=== PATIENT | female | born 1955 | race Caucasian/White ===

== ENCOUNTER 2016-10-30 08:13 | Inpatient (IN) | payer MEDICAID, OTHER ==
--- NOTE | 2016-10-30 08:25 | ED PDOC ---
Arrival/HPI - General Chief Complaint: Weakness/Neurological Deficit Time Seen by Provider: 10/30/16 08:19 Historian: Patient - Critical Care Critical Care Minutes: 30 minutes - History of Present Illness Narrative History of Present Illness (Text): 10/30/16 08:19 Rika Dave is a 61 year old female who presents to the emergency department complaining of weakness since this morning. Patient's history obtained from family who states that patient was found on the floor next to her bed this morning. Patient was last seen normal yesterday. Patient's only known past medical history is hypertension with an unknown medication from [place]. Patient has no other complaint at this time. Time/Duration: 1-3 hours Symptom Course: Unchanged Activities at Onset: Rest Modifying Factors (Text): none Context: Home Past Medical History - Provider Review Nursing Documentation Reviewed: Yes Family/Social History - Physician Review Nursing Documentation Reviewed: Yes Family/Social History: No Known Family HX Allergies/Home Meds Allergies/Adverse Reactions: Allergies No Known Allergies Allergy (Verified 10/30/16 11:41) Home Medications: Home Meds Medication Instructions Recorded Confirmed Bisoprolol Fumarate 5 mg PO DAILY 10/30/16 10/30/16 Diclofenac Potassium [Cambia] 50 mg PO DAILY 10/30/16 10/30/16 Nitroglycerin [Nitro-Time] 2.5 mg PO 10/30/16 Physical Exam - Physical Exam Narrative Physical Exam (Text): - Physical exam ROS unobtainable. - Systems Exam Head: Present: Atraumatic, Normocephalic Pupils: Present: PERRL Extraocular Muscles: Present: L. sided gaze Conjunctiva: Present: Normal Mouth: Present: Moist Mucous Membranes Neck: Present: Normal Range of Motion. No: MIDLINE TENDERNESS, Paraspinal Tenderness Respiratory/Chest: Present: Clear to Auscultation, Good Air Exchange. Protecting her airway No: Respiratory Distress, Accessory Muscle Use, Tachypnic Cardiovascular: Present: Regular Rate and Rhythm, Normal S1, S2, Peripheral Pulses Present. No: Murmurs Abdomen: Present: Normal Bowel Sounds, No: Tenderness, Peritoneal Signs, Rebound, Guarding, Distention Back: Present: Normal Inspection. No: Midline Tenderness, Paraspinal Tenderness Upper Extremity: Present: Normal Inspection. No: Cyanosis, Edema Lower Extremity: Present: Normal Inspection. No: Edema Neurological: Patient responds to tactile stimuli. Left sided gaze. Loss of right nasao labial fold. Unable to move right arm and right LE. Skin: Present: Warm, Dry, Normal Color. No: Rashes Lymphatic: Present: OX3, NI, NC Vital Signs Reviewed: Yes Vital Signs Temp Pulse Resp BP Pulse Ox 10/30/16 13:08 79 18 157/81 H 98 10/30/16 12:37 97.7 F 70 19 170/78 H 10/30/16 12:08 66 17 146/77 99 10/30/16 08:36 97.7 F 70 19 170/78 H 97 Temperature: Afebrile Blood Pressure: Hypertensive Pulse: Regular Respiratory Rate: Normal Appearance: Positive for: Non-Toxic Pain Distress: None Medical Decision Making ED Course and Treatment: 10/30/16 08:19 Impression: 61 year old female complaining of weakness since this morning. R. sided upper/ lower exr paralysis on exam. Loss of. R. naso-labial fold with L. sided gaze on exam. Differential Diagnosis included but are not limited to: TIA Plan: -- EKG -- Chest X-ray -- Head CT w/o contrast -- Type and Screen -- Labs -- Reassess and disposition Progress Notes: EKG shows NSR at [address]-segment elevations, normal intervals. Interpreted by me. 10/30/16 08:19 Patient examined immediately upon arrival. Code Stroke called. 10/30/16 08:[address] w/o contrast: Dictator : Elder Mckeon MD FINDINGS: HEMORRHAGE:No intracranial hemorrhage. BRAIN: No mass effect however there is questionable cortical edema at the left upper lobe laterally though this may be a function of artifact from the temporal bone. Follow-up MRI or CT is advised for further characterization. No atrophy or chronic microvascular ischemic changes. VENTRICLES:Unremarkable. No hydrocephalus. CALVARIUM:Unremarkable. PARANASAL SINUSES:Extensive left maxillary sinusitis incidentally noted. MASTOID AIR CELLS:Unremarkable as visualized. No inflammatory changes. OTHER FINDINGS:None. IMPRESSION: Borderline pattern for potential infarct left temporal lobe laterally. Follow- up CT or MRI is advised for greater characterization. No intracranial hemorrhage. Incidental left maxillary sinusitis. 10/30/16 08:[address] Greg Castellano in great detail, who recommends MRI and no TPA. 10/30/16 09:[address] Casiano, who accepts patient admission and states to admit patient to telemetry. pt's family member aware of plan and updated on pt's condition 10/30/16 15:24 spoke with personnel technician, states pt has large stroke on MRI, verbal order for MRA given Dr. Thompson informed of MRI finding - Lab Interpretations Lab Results: 10/30/16 08:36 10/30/16 08:36 Lab Results 10/30/16 08:57: Blood Type B POSITIVE, Antibody Screen Negative, BBK History Checked No verified bt 10/30/16 08:36: Sodium 138, Potassium 3.7, Chloride 104, Carbon Dioxide 23, Anion Gap 15, BUN 16, Creatinine 0.6, Est GFR ( Amer) > 60, Est GFR (Non- Af Amer) > 60, Random Glucose 215 H, Calcium 9.4, Total Bilirubin 1.0, AST 59 H , ALT 74 H, Alkaline Phosphatase 98, Troponin I < 0.01, Total Protein 7.2, Albumin 4.0, Globulin 3.2, Albumin/Globulin Ratio 1.3, Triglycerides 161 H, Cholesterol 191, LDL Cholesterol Direct 114, HDL Cholesterol 42 10/30/16 08:36: PT 10.9, INR 1.01, APTT 23.0 L 10/30/16 08:36: WBC 3.2 L, RBC 4.80, Hgb 13.9, Hct 39.4, MCV 82.1, MCH 29.0, MCHC 35.3, RDW 12.2, Plt Count 166, MPV 9.7, Neutrophils % (Manual) 29 L, Band Neutrophils % 2, Lymphocytes % (Manual) 56 H, Monocytes % (Manual) 8 H, Eosinophils % (Manual) 5 H, Platelet Evaluation Normal I have reviewed the lab results: Yes - RAD Interpretation Radiology Orders: 10/30/16 08:21 HEAD W/O (CODE STROKE) [CT] Stat CHEST PORTABLE [RAD] Stat 10/30/16 08:59 BRAIN WITHOUT CONTRAST [MRI] Stat - Medication Orders Current Medication Orders: Insulin Human Regular (Humulin R Low) 0 units SC ACHS CANDI PRN Reason: Protocol Metoprolol Tartrate (Lopressor) 5 mg IVP Q6 PRN PRN Reason: Systolic Blood Pressure Discontinued Medications Aspirin (Aspirin Supp) 300 mg RC STAT STA Stop: 10/30/16 09:04 Last Admin: 10/30/16 09:10 Dose: 300 mg Iohexol (Omnipaque 350 150 Ml) Confirm Administered Dose 150 ml .ROUTE .STK-MED ONE Stop: 10/30/16 09:48 Pneumococcal Polyvalent Vaccine (Pneumovax 23 Vaccine) 0.5 ml IM .ONCE ONE Stop: 10/30/16 13:14 NIHSS Scale ([place]) Time Performed: 08:19 - How Severe is the Stoke Baseline Level of Consciousness: 1=Drowsy LOC to Questions: 2=Neither correct LOC to commands: 2=Neither correct Best Gaze: 2=Forced deviation Visual: 0=No visual loss Facial: 1=Minor asymmetry Motor Arm - Left: 0=No drift Motor Arm - Right: 4=No movement Motor Leg - Left: 0=No drift Motor Leg - Right: 4=No movement Limb Ataxia: 0=Absent Sensory: 0=Normal Best Language: 2=Severe aphasia Dysarthia: 2=Severe, near unintelligible or worse Extinction & Inattention (Neglect): 0=Normal, no object Score: 20 Risk Level: Mod/Sev Stroke Risk rTPA Inclusion/Exclusion - Refusal of Treatment Patient Refused Treatment: No - Inclusion Criteria for Altepase Patient is 18 years or Older: Yes The Clinical Diagnosis of Ischemic Stroke That is Causing a Potentially Disabling Neurological Deficit: Yes Time of Onset is Well Established to be Less Than 270 Minute Before Treatment Would Begin: No Risk/Benefit Discussed With Patient/Family Member Present: No - Scribe Statement The provider has reviewed the documentation as recorded by the Scott Fraga Provider Scribe Attestation: All medical record entries made by the Scribe were at my direction and personally dictated by me. I have reviewed the chart and agree that the record accurately reflects my personal performance of the history, physical exam, medical decision making, and the department course for this patient. I have also personally directed, reviewed, and agree with the discharge instructions and disposition. Disposition/Present on Arrival - Present on Arrival Any Indicators Present on Arrival: No - Disposition Have Diagnosis and Disposition been Completed?: Yes Diagnosis: CVA (cerebral vascular accident) Disposition Time: 09:04 Patient Plan: Admission Patient Problems: Current Active Problems Problem Status Onset CVA (cerebral vascular accident) Acute Condition: FAIR
[2016-10-30 08:33] VITALS: BMI 21.9
--- NOTE | 2016-10-30 08:38 | CT ---
PROCEDURE: CT HEAD WITHOUT CONTRAST. HISTORY: Code Stroke COMPARISON: None available. TECHNIQUE: Axial computed tomography images were obtained through the head/brain without intravenous contrast. Radiation dose: Total exam DLP = 687 mGy-cm. This CT exam was performed using one or more of the following dose reduction techniques: Automated exposure control, adjustment of the mA and/or kV according to patient size, and/or use of iterative reconstruction technique. FINDINGS: HEMORRHAGE: No intracranial hemorrhage. BRAIN: No mass effect however there is questionable cortical edema at the left upper lobe laterally though this may be a function of artifact from the temporal bone. Follow-up MRI or CT is advised for further characterization. No atrophy or chronic microvascular ischemic changes. VENTRICLES: Unremarkable. No hydrocephalus. CALVARIUM: Unremarkable. PARANASAL SINUSES: Extensive left maxillary sinusitis incidentally noted. MASTOID AIR CELLS: Unremarkable as visualized. No inflammatory changes. OTHER FINDINGS: None. IMPRESSION: Borderline pattern for potential infarct left temporal lobe laterally. Follow-up CT or MRI is advised for greater characterization. No intracranial hemorrhage. Incidental left maxillary sinusitis.
[2016-10-30 08:49] LABS: HEMATOCRIT 39.4 % (36.0-48.0); MEAN CELL VOLUME 82.1 fL (80.0-105.0); MEAN CORPUSCULAR HGB CONC 35.3 g/dl (31.0-37.0); MEAN PLATELET VOLUME 9.7 fl (7.0-11.0); PLATELET COUNT 166 10^3/uL (120.0-450.0); RED CELL DISTRIBUTION WIDTH 12.2 % (11.5-14.5); WHITE BLOOD COUNT 3.2 10^3/ul (4.5-11.0)
[2016-10-30 08:50] LABS: ADD MANUAL DIFF? YES
[2016-10-30 08:56] LABS: INR 1.01 (0.93-1.08)
[2016-10-30 08:57] LABS: ALB/GLOB RATIO 1.3 (1.1-1.8); ALKALINE PHOSPHATASE 98 U/L (38-133); ALT/SGPT 74 U/L (7-56); AST/SGOT 59 U/L (15-39); BLOOD UREA NITROGEN 16 mg/dL (7-21); CALCIUM 9.4 mg/dL (8.4-10.5); CARBON DIOXIDE 23 mmol/L (21-33); CHLORIDE 104 mmol/L (98-107); CHOLESTEROL 191 mg/dL (130-200); GFR AFRICAN-AMERICAN > 60; GLUCOSE,RANDOM 215 mg/dL (70-110); POTASSIUM 3.7 mmol/L (3.6-5.0); SODIUM 138 mmol/L (132-148); TOTAL PROTEIN 7.2 g/dL (5.8-8.3)
[2016-10-30 09:08] LABS: TROPONIN I < 0.01 ng/mL
[2016-10-30 09:12] LABS: BAND 2 % (0-2); EOSINOPHIL 5 % (0.0-3.0); NEUTROPHIL 29 % (50.0-70.0); PLATELET ESTIMATE NORMAL (NORMAL)
--- NOTE | 2016-10-30 09:13 | RAD ---
HISTORY: CVA COMPARISON: No prior. FINDINGS: LUNGS: No active pulmonary disease. PLEURA: No significant pleural effusion identified, no pneumothorax apparent. CARDIOVASCULAR: Normal. OSSEOUS STRUCTURES: No significant abnormalities. VISUALIZED UPPER ABDOMEN: Normal. OTHER FINDINGS: None. IMPRESSION: No active disease.
--- NOTE | 2016-10-30 09:51 | CP.PCM.CON ---
History of Present Illness - History of Present Illness History of Present Illness: PGY-2 neurology consult note for Dr Castellano. Reason for consult: Stroke Patient is a 61 y/o with Found on the floor by family members this morning. Past Patient History - Past Social History Smoking Status: Never Smoked - CARDIAC Hx Hypertension: Yes - PULMONARY Hx Respiratory Disorders: No - NEUROLOGICAL Hx Neurological Disorder: No - HEENT Hx HEENT Problems: No - RENAL Hx Chronic Kidney Disease: No - ENDOCRINE/METABOLIC Hx Endocrine Disorders: No - HEMATOLOGICAL/ONCOLOGICAL Hx Blood Disorders: No - INTEGUMENTARY Hx Dermatological Problems: No - MUSCULOSKELETAL/RHEUMATOLOGICAL Hx Musculoskeletal Disorders: No - GASTROINTESTINAL Hx Gastrointestinal Disorders: No - GENITOURINARY/GYNECOLOGICAL Hx Genitourinary Disorders: No - PSYCHIATRIC Hx Psychophysiologic Disorder: No Hx Substance Use: No - SURGICAL HISTORY Hx Surgeries: Yes Other/Comment: Scar noted to left upper chest, unknown sx Meds Allergies/Adverse Reactions: Allergies Allergy/AdvReac Type Severity Reaction Status Date / Time No Known Allergies Allergy Verified 10/30/16 08:25 Results - Vital Signs Recent Vital Signs: Last Vital Signs Temp 97.7 F 10/30/16 08:36 Pulse 70 10/30/16 08:36 Resp 19 10/30/16 08:36 BP 170/78 H 10/30/16 08:36 Pulse Ox 97 10/30/16 08:36 - Labs Result Diagrams: 10/30/16 08:36 10/30/16 08:36 Assessment & Plan - Assessment and Plan (Free Text) Assessment: CT head w/o contrast: Borderline pattern for potential infarct left temporal lobe laterally. Follow-up CT or MRI is advised for greater characterization. No intracranial hemorrhage. Incidental left maxillary sinusitis. Plan: - Obtain MRI/MRA - Neuro check - Fall precaution - Maintain SBP between 130-140 - Monitor and correct electrolytes accordingly.
[2016-10-30] MEDS ORDERED: Metoprolol 1 mg/ml Inj IVP PRN (12:00)
--- NOTE | 2016-10-30 12:17 | CT ---
PROCEDURE: CT Angiography of the Brain. HISTORY: code stroke COMPARISON: None available. TECHNIQUE: CT angiography of the intracranial arteries was performed. Coronal and sagittal maximum intensity projection reformated images were generated. This CT exam was performed using one or more of the following dose reduction techniques: Automated exposure control, adjustment of the mA and/or kV according to patient size, and/or use of iterative reconstruction technique. FINDINGS: INTERNAL CEREBRAL ARTERIES: Unremarkable. The skull base, petrous, cavernous and supraclinoid segments are bilaterally widely patient. ANTERIOR CEREBRAL ARTERIES: Unremarkable. A1 and A2 segments are widely patent. Smaller distal branches unremarkable, as visualized. MIDDLE CEREBRAL ARTERIES: Unremarkable. M1 and M2 segments are widely patent. Perisylvian branches grossly symmetric. POSTERIOR CIRCULATION: Basilar Artery: Unremarkable. Distal Vertebral Arteries: Unremarkable. Posterior Cerebral Arteries: Unremarkable. Posterior Inferior Cerebellar Arteries: Unremarkable. ANEURYSM/ VASCULAR MALFORMATIONS: None. OTHER FINDINGS: None. IMPRESSION: Unremarkable CT Angiography of the Brain.
--- NOTE | 2016-10-30 12:53 | CP.PCM.CON ---
<Nilo Andrade S - Last Filed: 10/30/16 12:47> History of Present Illness - History of Present Illness History of Present Illness: PGY-[address] Castellano's Neurology Service: Reason for consult: Code Stroke This is a 61 year old female with PMHx CAD s/p PCI x2, HTN who presented to the ED with right sided weakness. Patient was well last evening but was found this morning on the floor next to her bed by her grandson. Patient was non-verbal and had right sided flacid hemiparesis. At the time of encounter patient was with her son-in-law who could not provide a more complete past medical history. PMHx: HTN, CAD s/p PCI x2 PSHx: Unspecified left sided CT surgery Allergies: NKDA Social: Denies tobacco, alcohol, drugs. Family Hx: No family history of CVA. Home Meds: unspecified BP medication Review of Systems - Review of Systems Review of Systems: Unable to ascertain 14-point ROS due to patient's non-verbal state. Past Patient History - Past Social History Smoking Status: Never Smoked - CARDIAC Hx Hypertension: Yes - PULMONARY Hx Respiratory Disorders: No - NEUROLOGICAL Hx Neurological Disorder: No - HEENT Hx HEENT Problems: No - RENAL Hx Chronic Kidney Disease: No - ENDOCRINE/METABOLIC Hx Endocrine Disorders: No - HEMATOLOGICAL/ONCOLOGICAL Hx Blood Disorders: No - INTEGUMENTARY Hx Dermatological Problems: No - MUSCULOSKELETAL/RHEUMATOLOGICAL Hx Musculoskeletal Disorders: No - GASTROINTESTINAL Hx Gastrointestinal Disorders: No - GENITOURINARY/GYNECOLOGICAL Hx Genitourinary Disorders: No - PSYCHIATRIC Hx Psychophysiologic Disorder: No Hx Substance Use: No - SURGICAL HISTORY Hx Surgeries: Yes Other/Comment: Scar noted to left upper chest, unknown sx Meds Allergies/Adverse Reactions: Allergies Allergy/AdvReac Type Severity Reaction Status Date / Time No Known Allergies Allergy Verified 10/30/16 11:41 - Medications Medications: Current Medications Insulin Human Regular (Humulin R Low) 0 units SC ACHS CANDI PRN Reason: Protocol Metoprolol Tartrate (Lopressor) 5 mg IVP Q6 PRN PRN Reason: Systolic Blood Pressure Physical Exam - Constitutional Additional comments: Drowsy - Head Exam Head Exam: ATRAUMATIC, NORMAL INSPECTION, NORMOCEPHALIC - Eye Exam Additional comments: Opens eyes spontaneously but unable to follow commands with regards to extraocular muscle testing. - Respiratory Exam Respiratory Exam: Clear to Auscultation Bilateral - Cardiovascular Exam Cardiovascular Exam: REGULAR RHYTHM - GI/Abdominal Exam GI & Abdominal Exam: Normal Bowel Sounds - Neurological Exam Additional comments: Right sided facial droop. Right sided flacid hemiparesis. Right sided flor-neglect. Spontaneously opens both eyes. Able to move left upper and lower extremities. Bilateral upper extremities 3/4 reflexes. Bilateral lower extremities 2+/4 reflexes. 2-3 beats of clonus bilaterally in the lower extremities right>left. Up-going plantar response on right. Down-going plantar response on left. Results - Vital Signs Recent Vital Signs: Last Vital Signs Temp 97.7 F 10/30/16 08:36 Pulse 70 10/30/16 08:36 Resp 19 10/30/16 08:36 BP 170/78 H 10/30/16 08:36 Pulse Ox 97 10/30/16 08:36 - Labs Result Diagrams: 10/30/16 08:36 10/30/16 08:36 Labs: Laboratory Results - last 24 hr 10/30/16 09:21 Blood Type Confirm B POSITIVE Assessment & Plan - Assessment and Plan (Free Text) Assessment: This is a 61 year old female with PMHx CAD s/p PCI x2, HTN who presented to the ED with right sided weakness. CT reveals ischemic changes in left temporal lobe indicating a left MCa territory infarct. Right sided weakness, right sided facial droop, aphasia secondary to a left MCA territory infarct secondary to diffuse atherosclerosis. Plan: 1) MRI brain without contrast to assess for infarction. 2) Labs--fasting lipid, Hgb A1C, Homocysteine level, Hepatitis Panel because of elevated LFTs 3) Carotid dopplers to assess for carotid disease 4) ASA 81 mg and Atorvastatin 80 mg PO daily. Can reduce Atorvastatin to 40 mg after 21 days. 5) 2D Echo 6) PT/OT/ BUDGET CONTROLLER evaluation 7) Needs acute rehab Case discussed with Dr. Nona Andrade, PGY-1 - Date & Time Date: 10/30/16 Time: 10:00 <Rodrigo Castellano - Last Filed: 10/30/16 13:15> Meds - Medications Medications: Current Medications Insulin Human Regular (Humulin R Low) 0 units SC ACHS CANDI PRN Reason: Protocol Metoprolol Tartrate (Lopressor) 5 mg IVP Q6 PRN PRN Reason: Systolic Blood Pressure Results - Vital Signs Recent Vital Signs: Last Vital Signs Temp 97.7 F 10/30/16 12:37 Pulse 70 10/30/16 12:37 Resp 19 10/30/16 12:37 BP 170/78 H 10/30/16 12:37 Pulse Ox 97 10/30/16 08:36 - Labs Result Diagrams: 10/30/16 08:36 10/30/16 08:36 Labs: Laboratory Results - last 24 hr 10/30/16 09:21 Blood Type Confirm B POSITIVE Attending/Attestation - Attestation I have personally seen and examined this patient.: Yes I have fully participated in the care of the patient.: Yes I have reviewed all pertinent clinical information: Yes
[2016-10-30] MEDS ORDERED: Pneumococcal 23-Valent Vaccine IM ONE (13:13)
--- NOTE | 2016-10-30 15:32 | MRI ---
PROCEDURE: MRI BRAIN WITHOUT CONTRAST HISTORY: cva COMPARISON: None. TECHNIQUE: Multiplanar, multisequence MR images of the brain were obtained without intravenous contrast enhancement. FINDINGS: HEMORRHAGE: None DWI: There is a large acute infarct in the left hemisphere involving the left frontal parietal and temporal lobes in the distribution of the middle cerebral artery. BRAIN PARENCHYMA: No mass effect or edema. The infarct is not yet visible on T2 and FLAIR images indicating that it is in its earliest stages. VENTRICLES: Unremarkable. No hydrocephalus. CRANIUM: Unremarkable. ORBITS: Grossly unremarkable. PARANASAL SINUSES/MASTOIDS: Clear VASCULAR SYSTEM: Skull base flow voids intact. OTHER FINDINGS: Dr. Barr was called at 3:30 p.m. IMPRESSION: Large acute left MCA infarct without significant mass effect and no evidence of hemorrhage.
--- NOTE | 2016-10-30 15:41 | CP.PCM.HP ---
"Addendum entered and electronically signed by Andrea Gutierrez DO 17:03: Subjective/HPI: Medications: see MAR, reviewed A/P 6.) Leukopenia - WBC: 3.2 - Follow CBC - if persists, Heme c/s Original Note: <Andrea Gutierrez - Last Filed: 10/30/16 16:44> History of Present Illness - History of Present Illness History of Present Illness: Note: HPI was obtained by son-in-law who was at bedside, 2/2 AMS Ms. Jaquan Dave is a 61 yo F with a PMHx significant for HTN, who was admitted today after presenting to the ED this morning with altered mental status. The pt was evaluated in the ED and code stroke was called at 0819. The pt was brought in by her son in law after being found on the floor at 0730, having fallen out of bed, by her grandson. She was last seen normal last night before bed. The pt was noted to be weak on presentation to the ED. Of note, patient takes an unknown medication for her HTN. The pt lives with her daughter and son in law. Per son in law, the pt had a normal weekend with no complaints or problems. He states that she has never experienced anything like this before. He recalls her complaining of headache earlier this week, more than four days ago. Pt speaks [place] and is from [place]. Patient denies recent illness, chest pains , smoking hx, and illicit drug use hx. PMHx: HTN, CAD s/p 2 or 3 cardiac caths in [place] due to chest pain. Uncertain if stents were placed PSHx: unknown Social: No smoking, tobacco, EtOH, or other drugs FHx: no known hx of heart disease or stroke. All: NKDA Present on Admission - Present on Admission Any Indicators Present on Admission: No Review of Systems - Hematologic/Lymphatic Additional comments: ROS: Difficult to obtain 2/2 patient's AMS. Past Patient History - Past Social History Smoking Status: Never Smoked - CARDIAC Hx Hypertension: Yes - PULMONARY Hx Respiratory Disorders: No - NEUROLOGICAL Hx Neurological Disorder: No - HEENT Hx HEENT Problems: No - RENAL Hx Chronic Kidney Disease: No - ENDOCRINE/METABOLIC Hx Endocrine Disorders: No - HEMATOLOGICAL/ONCOLOGICAL Hx Blood Disorders: No - INTEGUMENTARY Hx Dermatological Problems: No - MUSCULOSKELETAL/RHEUMATOLOGICAL Hx Musculoskeletal Disorders: No - GASTROINTESTINAL Hx Gastrointestinal Disorders: No - GENITOURINARY/GYNECOLOGICAL Hx Genitourinary Disorders: No - PSYCHIATRIC Hx Psychophysiologic Disorder: No Hx Substance Use: No - SURGICAL HISTORY Hx Surgeries: Yes Other/Comment: Scar noted to left upper chest, unknown sx Meds Allergies/Adverse Reactions: Allergies Allergy/AdvReac Type Severity Reaction Status Date / Time No Known Allergies Allergy Verified 10/30/16 11:41 Physical Exam - Additional Findings Additional findings: Vitals: T 97.7|HR 70|RR 19|BP 170/78|SpO2 97% on RA PEx: General: obtunded woman, slumped to R side. HEENT: atraumatic, normocephalic. R sided facial droop noted. MMM. Eyes: no scleral icterus. R pupil sluggishly reactive to light on exam. L pupil round and briskly reactive to light. Some R lateral gaze deficit noted on exam. Neck: neck supple, no jvd. Pulm: CTAB, no w/r/r. No accessory muscle use. Normal work of breathing. Cardio: RRR, no m/r/g. Abdomen: Soft NT/ND. No peritoneal signs. Neuro: GCS 10. Pt AO only to self with L-lester gaze. Pt responsive to tactile stimuli. Pt hearing normal in L ear. R sided facial droop. Nonverbal. Pt grimaces asymmetrically on command. Loss of R nasolabial fold. R-sided facial droop noted. 5/5 algebra teacher strength noted on the L, 0/5 algebra teacher strength on the R. 4/5 strength LLE and 0/5 strength RLE. No spontaneous movement of extremities past midline. Hyperreflexia noted on the L with LUE biceps and brachioradialis reflexes 3+, LLE patellar and plantar reflexes 3+ on the LLE. Normal 2+ reflexes in both RUE and RLE. RLE clonus present 2-3 beats. LLE clonus observed 2 beats. Babinski sign positive on both R and L with upgoing toes. Negative Hoffmans sign bilaterally. No asterixis or tremor noted in upper extremities bilaterally. MSK: no peripheral edema in bilateral LEs. Derm: skin warm, dry, intact. No rashes observed. Psych: clouded sensorium. Non-verbal. Results - Vital Signs Recent Vital Signs: Last Vital Signs Temp 97.7 F 10/30/16 12:37 Pulse 79 10/30/16 13:08 Resp 18 10/30/16 13:08 BP 157/81 H 10/30/16 13:08 Pulse Ox 98 10/30/16 13:08 - Labs Result Diagrams: 10/30/16 08:36 10/30/16 08:36 Labs: Laboratory Results - last 24 hr 10/30/16 09:21 Blood Type Confirm B POSITIVE Assessment & Plan - Assessment and Plan (Free Text) Assessment: Assessment: Admit ICU 1. CVA ischemic stroke - ED note reviewed: ASA, bisoprolol, potassium, and nitro given in ER. - NIH stroke scale: 20 - CT head: significant for L temporal lobe lesion and no intracranial hemorrhage. ECG was WNL. - CT Angio: no sig disease/no active disease - MRI: MCA infarct - MRA: MCA infarct - No tPA recommended at this time. - Neurochecks q1h - Per Neuro: ASA 81 mg and Atorvastatin 80 mg PO daily. Can reduce Atorvastatin to 40 mg after 21 days. - A1C, Homocysteine, LFT's ordered - Carotid Duplex U/S, B/L, Ordered - 2D ECHO - Social work: Stroke Rehab - PT/OT Evaluation needed - Continue ASA 81, Atorvastatin - NPO - Fall precautions - Seizure precautions 2. Elevated Liver enzymes - Hepatitis panel 3. Hyperglycemia - Humalog sliding scale 4. Hx/O HTN - Metoprolol 5mg IV q6 5. GI/DVT ppx - Protonix IV - SCD's <Leno Casiano - Last Filed: 10/30/16 17:34> Results - Vital Signs Recent Vital Signs: Last Vital Signs Temp 99.6 F 10/30/16 16:30 Pulse 68 10/30/16 16:10 Resp 21 10/30/16 16:10 BP 165/79 H 10/30/16 16:00 Pulse Ox 97 10/30/16 16:10 - Labs Result Diagrams: 10/30/16 08:36 10/30/16 08:36 Labs: Laboratory Results - last 24 hr 10/30/16 09:21 Blood Type Confirm B POSITIVE Attending/Attestation - Attestation I have personally seen and examined this patient.: Yes I have fully participated in the care of the patient.: Yes I have reviewed all pertinent clinical information: Yes Notes (Text): 10/30/16 17:30 Attending note; Patient seen and examined with resident in ER. Patient's son-in-law by the bedside. Patient is a 61-year-old [place]cu[place] female admitted with altered mental status/ aphasia/right-sided weakness. The patient was found on the floor at 7:30 this morning. Code stroke was called. Patient is not a TPA candidate due to the unknown time of onset of symptoms. CT head showed left temporal infarct. MRI showed large MCA infarct. MRA consistent with left MCA occlusion. Patient is alert and awake. Cannot follow commands. Failed swallow evaluation. Complete right-sided flaccid paralysis/ aphasic. Admitted to ICU; Monitor closely. Neuro checks every 1 hour. Aspirin suppository given. IV metoprolol for hypertension. GI prophylaxis with Protonix. SCDs for DVT prophylaxis. Physical therapy/speech therapy/occupational therapy evaluation requested. Patient is from [place]. 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
--- NOTE | 2016-10-30 15:49 | MRI ---
PROCEDURE: Magnetic Resonance Angiography Brain HISTORY: PER DR. GANDHI FROM COMPARISON: MRI of the brain performed at the same time TECHNIQUE: 3D time of flight MR angiography of the intracranial arteries was performed. Rotating maximum intensity projection images were generated. FINDINGS: The study is limited by motion artifact. There is no flow seen in the MCA branches on the left beyond on the level of the bifurcation. There is some flow seen in the M1 segment. . The findings correspond to the acute infarct seen on the diffusion images of the MRI scan. Findings were discussed with Drs. Gandhi and Jay at 3:30PM IMPRESSION: Occlusion of the left middle cerebral artery
[2016-10-30] MEDS: Insulin Reg-LOW-Coverage SC SCH ×2 (19:29→22:00)
[2016-10-30 20:52] LABS: PH,URINE 6.5 (4.7-8.0); URINE BILIRUBIN NEGATIVE (NEGATIVE); URINE BLOOD SMALL (NEGATIVE); URINE GLUCOSE (UA) 250 mg/dL (NEGATIVE); URINE KETONE 15 mg/dL (NEGATIVE); URINE LEUKOCYTE ESTERASE NEGATIVE Leu/uL (NEGATIVE); URINE PROTEIN NEGATIVE mg/dL (<30 mg/dL); URINE UROBILINOGEN 0.2 E.U./dL (<1 E.U./dL)
[2016-10-30 20:55] LABS: URINE APPEARANCE CLOUDY (CLEAR); URINE COLOR YELLOW (YELLOW)
--- NOTE | 2016-10-30 21:08 | CARD ---
APPROVED REPORT EKG Measurement Heart [id number] <Conclusion> Normal sinus rhythm Normal ECG
[2016-10-30 21:56] LABS: URINE BACTERIA MOD (NEG); URINE EPITHELIAL CELLS 0 - 2 /hpf (0-5); URINE WBC 0 - 2 /hpf (0-6)
--- NOTE | 2016-10-31 01:17 | CON ---
DATE: 10/30/2016 HISTORY OF PRESENT ILLNESS: This is a 61-year-old lady with history of hypertension who presented with weakness since this morning. The patient was found on the floor by family member and later on weakness in the left upper and lower extremities as well as the left part of the face was noted. No more details about her HPI is available as she is poor historian. No details about fever, chills, sweat, nausea, vomiting, diarrhea or constipation. Chest pain and shortness of breath available as well. PAST MEDICAL HISTORY: Hypertension. MEDICATIONS AT HOME: Bisoprolol, diclofenac, and nitroglycerin. ALLERGIES: NKDA. FAMILY HISTORY: Noncontributory. SOCIAL HISTORY: No alcohol use or drug abuse. No tobacco smoking. REVIEW OF SYSTEMS: Review of 12-point review of system other than mentioned in history of present illness is negative. PHYSICAL EXAMINATION VITAL SIGNS: Blood pressure 157/81, heart rate 79, respiratory rate 18, oxygen saturation 98% on room air. HEENT: Head and neck is atraumatic. There is essential flattening of the right nasolabial fold. She is unable to rise her eyebrow on the right side. LUNGS: Clear to auscultation bilaterally. CARDIOPULMONARY: Regular rate and rhythm. S1 and S2 normal. ABDOMEN: Soft, nontender and nondistended. MUSCULOSKELETAL: No C/C/E. EXTREMITIES: There is a 1/5 motor strength in the left upper and lower extremities. SKIN: Moist. PSYCHIATRIC: The patient is able to follow commands, but barely. LABORATORY DATA: WBC 3.2, hemoglobin 13.9 and platelet count 156. Sodium 138, potassium 3.7, chloride 104, carbon dioxide 23, BUN 16, creatinine 0.6, AST 59, ALT 74, total bilirubin 1. INR 1.01. Initial head CT showed borderline pattern of potential infarct in left temporal lobe laterally. CT angiography showed widely patent M1, M2 segments in both middle cerebral arteries. Unremarkable A1 and A2 segments of the anterior cerebral arteries, posterior circulation including basilar artery, distal vertebral arteries, posterior cerebral arteries, posterior and inferior cerebral arteries are unremarkable. No AV malformations noted. She also does not have history of migraine or convulsion disorder. ASSESSMENT AND PLAN: This is a 61-year-old lady who presented with clinical left middle cerebral artery stroke which, however, was not visible on CT angio. She is going for MRI of the brain to better characterize changes in her brain. Meanwhile, we will treat her with permissive hypertension up to 220 systolic according to AHA guidelines and recommendations. She will receive aspirin, remain n.p.o. until swallow evaluation clears her for oral nutrition and medications. We will proceed with physical therapy and occupational therapy, early mobilization, out of bed to chair, echocardiogram, carotid Doppler. We will continue to maintain euvolemia, euglycemia, normothermia, and oxygen saturation more than more than 90%. We will continue with DVT and GI prophylaxis. ccm time 40 min Jovany Thompson MD [place]
[2016-10-31 06:48] LABS: MEAN CELL VOLUME 82.1 fL (80.0-105.0); MEAN CORPUSCULAR HEMOGLOBIN 28.4 pg (25.0-35.0); MEAN CORPUSCULAR HGB CONC 34.7 g/dl (31.0-37.0); MEAN PLATELET VOLUME 9.9 fl (7.0-11.0); RED CELL DISTRIBUTION WIDTH 12.6 % (11.5-14.5); WHITE BLOOD COUNT 5.9 10^3/ul (4.5-11.0)
[2016-10-31 06:58] LABS: BLOOD UREA NITROGEN 13 mg/dL (7-21); CALCIUM 9.8 mg/dL (8.4-10.5); CARBON DIOXIDE 25 mmol/L (21-33); CHLORIDE 102 mmol/L (98-107); GFR AFRICAN-AMERICAN > 60; GLUCOSE,RANDOM 184 mg/dL (70-110); POTASSIUM 3.8 mmol/L (3.6-5.0); SODIUM 138 mmol/L (132-148)
[2016-10-31] MEDS: Insulin Reg-LOW-Coverage SC SCH ×4 (08:18→22:31)
--- NOTE | 2016-10-31 09:56 | US ---
PROCEDURE: Bilateral carotid artery duplex ultrasound HISTORY: Carotid stenosis CVA PHYSICIAN(S): Dirk Paz MD. TECHNIQUE: Duplex sonography and color-flow Doppler were used to evaluate the carotid bifurcations and limited segments of the vertebral arteries bilaterally. FINDINGS: There is mild smooth hypoechoic plaque noted at the carotid bifurcations bilaterally. The peak systolic velocity in the proximal right internal carotid artery is 88 cm/sec. This corresponds to a 20 to 39% proximal right ICA stenosis. Normal systolic velocities are noted in the proximal right external carotid artery. There is antegrade flow in the small right vertebral artery. The peak systolic velocity in the proximal left internal carotid artery is 54 cm/sec. This corresponds to a 20 to 39% proximal left ICA stenosis. Normal systolic velocities are noted in the proximal left external carotid artery. There is antegrade flow in the dominant left vertebral artery. IMPRESSION: 1. Bilateral 20-39% proximal ICA stenoses. 2. Antegrade flow in both vertebral arteries.
[2016-10-31 10:05] LABS: ALB/GLOB RATIO 1.2 (1.1-1.8); ALKALINE PHOSPHATASE 100 U/L (38-133); ALT/SGPT 61 U/L (7-56); AST/SGOT 47 U/L (15-39); BILIRUBIN,TOTAL 1.2 mg/dL (0.2-1.3); BLOOD UREA NITROGEN 14 mg/dL (7-21); CALCIUM 9.7 mg/dL (8.4-10.5); CARBON DIOXIDE 24 mmol/L (21-33); CHLORIDE 102 mmol/L (98-107); GFR AFRICAN-AMERICAN > 60; GLUCOSE,RANDOM 205 mg/dL (70-110); POTASSIUM 3.9 mmol/L (3.6-5.0); SODIUM 138 mmol/L (132-148); TOTAL PROTEIN 7.6 g/dL (5.8-8.3)
--- NOTE | 2016-10-31 12:18 | CP.PCM.CON ---
<Nilo Andrade - Last Filed: 10/31/16 12:13> History of Present Illness - History of Present Illness History of Present Illness: PGY-1 Neurology Progress Note for Dr. Castellano's service: Patient seen and examined at bedside. Patient is more responsive than yesterday. Some spontaneous internal rotation of the right hip noted. Review of Systems - Review of Systems Review of Systems: 14 point ROS unable to ascertain due to non-verbal state. Past Patient History - Past Social History Smoking Status: Never Smoked - CARDIAC Hx Hypertension: Yes - PULMONARY Hx Respiratory Disorders: No - NEUROLOGICAL Hx Neurological Disorder: No - HEENT Hx HEENT Problems: No - RENAL Hx Chronic Kidney Disease: No - ENDOCRINE/METABOLIC Hx Endocrine Disorders: No - HEMATOLOGICAL/ONCOLOGICAL Hx Blood Disorders: No - INTEGUMENTARY Hx Dermatological Problems: No - MUSCULOSKELETAL/RHEUMATOLOGICAL Hx Musculoskeletal Disorders: No - GASTROINTESTINAL Hx Gastrointestinal Disorders: No - GENITOURINARY/GYNECOLOGICAL Hx Genitourinary Disorders: No - PSYCHIATRIC Hx Psychophysiologic Disorder: No Hx Substance Use: No - SURGICAL HISTORY Hx Surgeries: Yes Other/Comment: Scar noted to left upper chest, unknown sx Meds Allergies/Adverse Reactions: Allergies Allergy/AdvReac Type Severity Reaction Status Date / Time No Known Allergies Allergy Verified 10/30/16 11:41 - Medications Medications: Current Medications Aspirin (Aspirin Supp) 300 mg RC DAILY [facility] Last Admin: 10/31/16 11:19 Dose: Not Given Insulin Human Regular (Humulin R Low) 0 units SC ACHS [facility] PRN Reason: Protocol Last Admin: 10/31/16 08:18 Dose: 1 units Metoprolol Tartrate (Lopressor) 5 mg IVP Q6 PRN PRN Reason: Systolic Blood Pressure Pantoprazole Sodium (Protonix Inj) 40 mg IVP DAILY [facility] Last Admin: 10/31/16 11:19 Dose: Not Given Physical Exam - Constitutional Appears: No Acute Distress Additional comments: drowsy - Head Exam Head Exam: ATRAUMATIC, NORMAL INSPECTION, NORMOCEPHALIC - ENT Exam ENT Exam: Mucous Membranes Moist - Respiratory Exam Respiratory Exam: Clear to Auscultation Bilateral - Cardiovascular Exam Cardiovascular Exam: REGULAR RHYTHM - GI/Abdominal Exam GI & Abdominal Exam: Normal Bowel Sounds - Neurological Exam Additional comments: Right sided facial droop. Right sided flacid hemiparesis, but some spontaneous internal rotation of the hip. Right sided flor-neglect. Spontaneously opens both eyes. Able to move left upper and lower extremities. Bilateral upper extremities 3/4 reflexes. Bilateral lower extremities 2+/4 reflexes. 2-3 beats of clonus bilaterally in the lower extremities right>left. Up-going plantar response on right. Down-going plantar response on left. Results - Vital Signs Recent Vital Signs: Last Vital Signs Temp 99.4 F 10/31/16 08:03 Pulse 76 10/31/16 08:03 Resp 16 10/31/16 08:03 BP 140/83 10/31/16 08:03 Pulse Ox 98 10/31/16 08:03 - Labs Result Diagrams: 10/31/16 06:10 10/31/16 09:49 Labs: Laboratory Results - last 24 hr 10/30/16 10/30/16 10/30/16 16:08 18:00 21:51 WBC RBC Hgb Hct MCV MCH MCHC RDW Plt Count MPV Sodium Potassium Chloride Carbon Dioxide Anion Gap BUN Creatinine Est GFR ( Amer) Est GFR (Non-Af Amer) POC Glucose (mg/dL) 219 H 164 H Random Glucose Calcium Total Bilirubin AST ALT Alkaline Phosphatase Total Protein Albumin Globulin Albumin/Globulin Ratio Urine Color Yellow Urine Appearance Cloudy Urine pH 6.5 Ur Specific [place] <= 1.005 Urine Protein Negative Urine Glucose (UA) 250 H Urine Ketones 15 H Urine Blood Small H Urine Nitrate Negative Urine Bilirubin Negative Urine Urobilinogen 0.2 Ur Leukocyte Esterase Negative Urine RBC 2 - 5 Urine WBC 0 - 2 Ur Epithelial Cells 0 - 2 Urine Bacteria Mod 10/31/16 10/31/16 10/31/16 06:10 06:10 07:24 WBC 5.9 D RBC 5.24 Hgb 14.9 Hct 43.0 MCV 82.1 MCH 28.4 MCHC 34.7 RDW 12.6 Plt Count 226 MPV 9.9 Sodium 138 Potassium 3.8 Chloride 102 Carbon Dioxide 25 Anion Gap 15 BUN 13 Creatinine 0.6 Est GFR ( Amer) > 60 Est GFR (Non-Af Amer) > 60 POC Glucose (mg/dL) 203 H Random Glucose 184 H Calcium 9.8 Total Bilirubin AST ALT Alkaline Phosphatase Total Protein Albumin Globulin Albumin/Globulin Ratio Urine Color Urine Appearance Urine pH Ur Specific [place] Urine Protein Urine Glucose (UA) Urine Ketones Urine Blood Urine Nitrate Urine Bilirubin Urine Urobilinogen Ur Leukocyte Esterase Urine RBC Urine WBC Ur Epithelial Cells Urine Bacteria 10/31/16 09:49 WBC RBC Hgb Hct MCV MCH MCHC RDW Plt Count MPV Sodium 138 Potassium 3.9 Chloride 102 Carbon Dioxide 24 Anion Gap 16 BUN 14 Creatinine 0.7 Est GFR ( Amer) > 60 Est GFR (Non-Af Amer) > 60 POC Glucose (mg/dL) Random Glucose 205 H Calcium 9.7 Total Bilirubin 1.2 AST 47 H ALT 61 H Alkaline Phosphatase 100 Total Protein 7.6 Albumin 4.1 Globulin 3.4 Albumin/Globulin Ratio 1.2 Urine Color Urine Appearance Urine pH Ur Specific [place] Urine Protein Urine Glucose (UA) Urine Ketones Urine Blood Urine Nitrate Urine Bilirubin Urine Urobilinogen Ur Leukocyte Esterase Urine RBC Urine WBC Ur Epithelial Cells Urine Bacteria Assessment & Plan - Assessment and Plan (Free Text) Assessment: This is a 61 year old female with PMHx CAD s/p PCI x2, HTN who presented to the ED with right sided weakness. CT reveals ischemic changes in left temporal lobe indicating a left MCA territory infarct. Right sided weakness, right sided facial droop, aphasia secondary to a left MCA territory infarct secondary to diffuse atherosclerosis. MRI consistent with large acute MCA infarct. CTA revealed patent arteries, but MRA showed left MCA occlusion. Carotid dopplers reveal bilateral 20-39% ICA stenosis. Newly diagnosed Diabetes Mellitus as evidenced by hemoglobin A1C 8.8. LDL 114. Plan: 1) Follow up Homocysteine level, Hepatitis Panel because of elevated LFTs 2) Follow up Carotid dopplers to assess for carotid disease 3) ASA 81 mg and Atorvastatin 80 mg PO daily. Can reduce Atorvastatin to 40 mg after 21 days. 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 Spoken with family member at bedside. Case discussed with Dr. Nona Andrade, PGY-1 - Date & Time Date: 10/31/16 Time: 15:00 <Rodrigo Castellano - Last Filed: 11/01/16 09:49> Meds - Medications Medications: Current Medications Aspirin (Aspirin Supp) 300 mg RC DAILY [facility] Last Admin: 11/01/16 09:08 Dose: 300 mg Atorvastatin Calcium (Lipitor) 80 mg PO DAILY [facility] Last Admin: 11/01/16 09:10 Dose: 80 mg Enoxaparin Sodium (Lovenox) 40 mg SC DAILY [facility] PRN Reason: Protocol Last Admin: 11/01/16 09:10 Dose: 40 mg Insulin Human Regular (Humulin R Low) 0 units SC ACHS [facility] PRN Reason: Protocol Last Admin: 11/01/16 09:09 Dose: 1 units Metoprolol Tartrate (Lopressor) 5 mg IVP Q6 PRN PRN Reason: Systolic Blood Pressure Pantoprazole Sodium (Protonix Inj) 40 mg IVP DAILY [facility] Last Admin: 11/01/16 09:10 Dose: 40 mg Results - Vital Signs Recent Vital Signs: Last Vital Signs Temp 99.7 F H 11/01/16 09:08 Pulse 108 H 11/01/16 08:00 Resp 17 11/01/16 08:00 BP 142/84 11/01/16 08:00 Pulse Ox 96 11/01/16 08:00 - Labs Result Diagrams: 11/01/16 05:00 11/01/16 05:45 Labs: Laboratory Results - last 24 hr 10/31/16 10/31/16 10/31/16 06:10 09:49 11:22 WBC RBC Hgb Hct MCV MCH MCHC RDW Plt Count MPV Gran % Lymph % (Auto) [place] % (Auto) Eos % (Auto) Baso % (Auto) Gran # Lymph # [place] # Eos # Baso # Sodium 138 Potassium 3.9 Chloride 102 Carbon Dioxide 24 Anion Gap 16 BUN 14 Creatinine 0.7 Est GFR ( Amer) > 60 Est GFR (Non-Af Amer) > 60 POC Glucose (mg/dL) 174 H Random Glucose 205 H Calcium 9.7 Total Bilirubin 1.2 AST 47 H ALT 61 H Alkaline Phosphatase 100 Total Protein 7.6 Albumin 4.1 Globulin 3.4 Albumin/Globulin Ratio 1.2 Hepatitis A IgM Ab Negative Hep Bs Antigen Negative Hep B Core IgM Ab Negative Hepatitis C Antibody Reactive H 10/31/16 10/31/16 11/01/16 15:53 21:36 05:00 WBC 6.0 RBC 5.31 Hgb 15.4 Hct 44.1 MCV 83.1 MCH 29.0 MCHC 34.9 RDW 12.6 Plt Count 222 MPV 9.8 Gran % 51.1 Lymph % (Auto) 38.6 H [place] % (Auto) 10.1 H Eos % (Auto) 0.0 L Baso % (Auto) 0.2 Gran # 3.05 Lymph # 2.3 [place] # 0.6 Eos # 0.0 Baso # 0.01 Sodium Potassium Chloride Carbon Dioxide Anion Gap BUN Creatinine Est GFR ( Amer) Est GFR (Non-Af Amer) POC Glucose (mg/dL) 209 H 192 H Random Glucose Calcium Total Bilirubin AST ALT Alkaline Phosphatase Total Protein Albumin Globulin Albumin/Globulin Ratio Hepatitis A IgM Ab Hep Bs Antigen Hep B Core IgM Ab Hepatitis C Antibody 11/01/16 05:45 WBC RBC Hgb Hct MCV MCH MCHC RDW Plt Count MPV Gran % Lymph % (Auto) [place] % (Auto) Eos % (Auto) Baso % (Auto) Gran # Lymph # [place] # Eos # Baso # Sodium 138 Potassium 3.9 Chloride 102 Carbon Dioxide 24 Anion Gap 16 BUN 16 Creatinine 0.7 Est GFR ( Amer) > 60 Est GFR (Non-Af Amer) > 60 POC Glucose (mg/dL) Random Glucose 198 H Calcium 9.6 Total Bilirubin 1.4 H AST 40 H ALT 52 Alkaline Phosphatase 97 Total Protein 7.5 Albumin 4.1 Globulin 3.4 Albumin/Globulin Ratio 1.2 Hepatitis A IgM Ab Hep Bs Antigen Hep B Core IgM Ab Hepatitis C Antibody Attending/Attestation - Attestation I have personally seen and examined this patient.: Yes I have fully participated in the care of the patient.: Yes I have reviewed all pertinent clinical information: Yes
--- NOTE | 2016-10-31 13:43 | CP.PCM.PN ---
<Marquita Israel - Last Filed: 10/31/16 14:39> Subjective - Date & Time of Evaluation Date of Evaluation: 10/31/16 Time of Evaluation: 08:20 - Subjective Subjective: Patient seen and examined at bedside. Patient's son in law is present. Requests MRI report to show to family/doctors in [place]. Patient is not able to speak due to stroke. Objective - Vital Signs/Intake and Output Vital Signs (last 24 hours): Temp Pulse Resp BP Pulse Ox 98.8 F 66 14 135/74 97 10/31/16 12:00 10/31/16 13:11 10/31/16 12:00 10/31/16 12:00 10/31/16 12:00 Intake and Output: 10/31/16 10/31/16 06:59 18:59 Output Total 200 Balance -200 - Medications Medications: Current Medications Aspirin (Aspirin Supp) 300 mg RC DAILY [facility] Last Admin: 10/31/16 11:19 Dose: Not Given Insulin Human Regular (Humulin R Low) 0 units SC ACHS [facility] PRN Reason: Protocol Last Admin: 10/31/16 13:07 Dose: 1 units Metoprolol Tartrate (Lopressor) 5 mg IVP Q6 PRN PRN Reason: Systolic Blood Pressure Pantoprazole Sodium (Protonix Inj) 40 mg IVP DAILY [facility] Last Admin: 10/31/16 11:19 Dose: Not Given - Labs Labs: 10/31/16 06:10 10/31/16 09:49 PT 10.9 Seconds (9.9-11.8) 10/30/16 08:36 INR 1.01 (0.93-1.08) 10/30/16 08:36 APTT 23.0 Seconds (23.7-30.8) L 10/30/16 08:36 - Head Exam Head Exam: ATRAUMATIC, NORMOCEPHALIC - Neck Exam Neck Exam: Normal Inspection - Respiratory Exam Respiratory Exam: Clear to Ausculation Bilateral, NORMAL BREATHING PATTERN - Cardiovascular Exam Cardiovascular Exam: RRR, +S1, +S2 - GI/Abdominal Exam GI & Abdominal Exam: Normal Bowel Sounds - Rectal Exam Rectal Exam: Deferred - Back Exam Additional comments: Hyperreflexic on right side. - Neurological Exam Neurological Exam: Awake Neuro motor strength exam: Right Upper Extremity: 0, Right Lower Extremity: 0 Additional comments: right UE and RLE hyperreflexia Assessment and Plan - Assessment and Plan (Free Text) Assessment: Ms. Partida is a 61-year-old Maur[place] female with a past medical history of hypertension, DM, CAD with stent placement(s), who presented to [facility] for sudden- onset right sided hemiparesis, asphasia, and dysphagia secondary to a massive left MCA stroke. She was admitted to the ICU for airway protection and greater care/monitoring for this acute condition. Neurologic: Left middle cerebral artery infarct; treat with PT/OT/speech therapy , 80 mg of atorvastatin and 300 mg aspirin rectally. Neuro checks q1h. US Carotid Doppler showed no evidence of plaque rupture. ECHO TTE pending. MRA showed left MCA occlusion. Respiratory: In no acute distress at this time. Will monitor respiratory status carefully, and ensure oxygen saturation greater than 90%. Cardiovascular: Echo TTE ordered, monitoring telemetry for any paroxysmal arrhythmias. Controlling BP with PRN metoprolol 5 mg. GI: Patient was cleared for a dysphagia diet, awaiting speech therapy <Dee LIRIANO,Nito H - Last Filed: 10/31/16 15:53> Objective - Vital Signs/Intake and Output Vital Signs (last 24 hours): Temp Pulse Resp BP Pulse Ox 98.8 F 66 14 135/74 97 10/31/16 12:00 10/31/16 13:11 10/31/16 12:00 10/31/16 12:00 10/31/16 12:00 Intake and Output: 10/31/16 10/31/16 06:59 18:59 Output Total 200 Balance -200 - Medications Medications: Current Medications Aspirin (Aspirin Supp) 300 mg RC DAILY [facility] Last Admin: 10/31/16 11:19 Dose: Not Given Enoxaparin Sodium (Lovenox) 40 mg SC DAILY [facility] PRN Reason: Protocol Insulin Human Regular (Humulin R Low) 0 units SC ACHS [facility] PRN Reason: Protocol Last Admin: 10/31/16 13:07 Dose: 1 units Metoprolol Tartrate (Lopressor) 5 mg IVP Q6 PRN PRN Reason: Systolic Blood Pressure Pantoprazole Sodium (Protonix Inj) 40 mg IVP DAILY [facility] Last Admin: 10/31/16 11:19 Dose: Not Given - Labs Labs: 10/31/16 06:10 10/31/16 09:49 PT 10.9 Seconds (9.9-11.8) 10/30/16 08:36 INR 1.01 (0.93-1.08) 10/30/16 08:36 APTT 23.0 Seconds (23.7-30.8) L 10/30/16 08:36 Attending/Attestation - Attestation I have personally seen and examined this patient.: Yes I have fully participated in the care of the patient.: Yes I have reviewed all pertinent clinical information, including history, physical exam and plan: Yes Notes (Text): 10/31/16 15:41 61 y/o F w/ Large L MCA CVA seen on multiple imaging sequences. large Neurological Defecits noted. BP well controlled . No need of anti htn meds. Airway protected, but does have large aspiration risk Will need speech and swallow eval. If multiple attempts are made without improvement, then a Feeding tube would be needed. PT/OT would be needed as well. ECHO pending. NSR on ekg and telemetry. dvt p scd cc time 65 min
--- NOTE | 2016-10-31 15:16 | CP.PCM.PN ---
<BrendaAndrea - Last Filed: 10/31/16 15:00> Subjective - Date & Time of Evaluation Date of Evaluation: 10/31/16 Time of Evaluation: 09:00 - Subjective Subjective: Subjective: Pt s/e at bedside. Patient seems mildly improved since yesterday. Pt is more responsive to stimuli. Pt remains nonverbal. Subjective hx limited 2/2 nonverbal status. Pt does awaken spontaneously and moves laterally in bed as before. Right sided hemiparesis and hemineglect is still present. Objective: Vitals: T 99.4 HR 87 BP 140/83 RR 16 SPO2 98% on RA Objective - Vital Signs/Intake and Output Vital Signs (last 24 hours): Temp Pulse Resp BP Pulse Ox 98.8 F 66 14 135/74 97 10/31/16 12:00 10/31/16 13:11 10/31/16 12:00 10/31/16 12:00 10/31/16 12:00 Intake and Output: 10/31/16 10/31/16 06:59 18:59 Output Total 200 Balance -200 - Medications Medications: Current Medications Aspirin (Aspirin Supp) 300 mg RC DAILY [facility] Last Admin: 10/31/16 11:19 Dose: Not Given Insulin Human Regular (Humulin R Low) 0 units SC ACHS [facility] PRN Reason: Protocol Last Admin: 10/31/16 13:07 Dose: 1 units Metoprolol Tartrate (Lopressor) 5 mg IVP Q6 PRN PRN Reason: Systolic Blood Pressure Pantoprazole Sodium (Protonix Inj) 40 mg IVP DAILY [facility] Last Admin: 10/31/16 11:19 Dose: Not Given - Labs Labs: 10/31/16 06:10 10/31/16 09:49 PT 10.9 Seconds (9.9-11.8) 10/30/16 08:36 INR 1.01 (0.93-1.08) 10/30/16 08:36 APTT 23.0 Seconds (23.7-30.8) L 10/30/16 08:36 - Additional Findings Additional findings: PEx: General: Obtunded female, NAD. Well-nourished. Non-toxic appearance. Head of bed at semi-Fowlers position. HEENT: head NC, AT. MMM. PEERL. Unable to test extraocular movements 2/2 AMS. Some R ptosis and R lateral gaze deficit noted. No conjunctival pallor. No scleral icterus. No proptosis. Neck: supple with full active ROM. Lungs: CTAB. No w/r/r. Cardio: normal S1 and S2. No m/r/g. Regular DP pulses 2+ bilaterally. Neuro: Pt AO to self. Spontaneously opens eyes with verbal stimuli. Persistent R -sided flor-neglect. Unresponsive to painful stimuli in RUE and RLE. Unable to move extremities past midline. 0/5 strength over RUE and RLE. Pt can externally rotate LLE, 4/5 strength. RLE strength 0/5. Negative Babinski sign on R. MSK: distal cap refill time < 2 sec. No peripheral edema noted in bilateral extremities. Skin: skin over distal extremities warm, dry, intact. No rash on exam. Assessment and Plan - Assessment and Plan (Free Text) Assessment: A/P 61 yo woman with PMHx CAD and HTN s/p ischemic stroke in L MCA territory yesterday morning. On exam, pts neurological status is largely unchanged; although she seems to be slightly more responsive to verbal stimuli. Vitals have been stable overnight. 1. CVA - Ischemic stroke: L MCA territory -Brain MRI results reviewed: yesterday 1530 showed early infarct in MCA territory with no mass effect or bleeding. -Head MRA reviewed: yesterday 1542, significant for L MCA occlusion -Bilateral Carotid duplex US reviewed: resulted today, significant for 20-39% stenotic occlusion bilaterally. -Neurology on c/s: ASA 81 mg and Atorvastatin 80 mg PO daily. Can reduce Atorvastatin to 40 mg after 21 days. -Echo with air bubble study: pending. -Continue neurochecks q1h -Medications: ASA suppository, Metoprolol 5mg PRN (see below), pantoprazole IV -Hold atorvastatin until pts swallow study and NPO status are re-evaluated. -PT/OT evaluation for swallow study - pending. GI has approved dysphagia diet. -Social work: followup regarding stroke rehab -Seizure precautions -Fall precautions 2. Elevated liver enzymes: AST 47, ALT 61, ALP 100 today -Studies for HAV and HBV are negative -HCV pending -Homocysteine levels pending 3. PMHx HTN -Metoprolol 5mg IV q6h PRN indicated when pt SBP rises over 220, or DBP over 180 as per protocol in management of acute ischemic stroke 4. Hyperglycemia: fingerstick 203 this morning. Up from 164 yesterday afternoon , 219 yesterday afternoon. -Humalog sliding scale 5. Leukopenia: -WBC yesterday was 3.2, up to 5.9 today -Continue to monitor CBC 6. Prophylaxis -DVT: Lovenox -GI: pantoprazole 40mg IV <Simone King MD - Last Filed: 10/31/16 16:47> Objective - Vital Signs/Intake and Output Vital Signs (last 24 hours): Temp Pulse Resp BP Pulse Ox 98.8 F 66 14 135/74 97 10/31/16 12:00 10/31/16 13:11 10/31/16 12:00 10/31/16 12:00 10/31/16 12:00 Intake and Output: 10/31/16 10/31/16 06:59 18:59 Output Total 200 Balance -200 - Medications Medications: Current Medications Aspirin (Aspirin Supp) 300 mg RC DAILY [facility] Last Admin: 10/31/16 11:19 Dose: Not Given Enoxaparin Sodium (Lovenox) 40 mg SC DAILY [facility] PRN Reason: Protocol Insulin Human Regular (Humulin R Low) 0 units SC ACHS [facility] PRN Reason: Protocol Last Admin: 10/31/16 13:07 Dose: 1 units Metoprolol Tartrate (Lopressor) 5 mg IVP Q6 PRN PRN Reason: Systolic Blood Pressure Pantoprazole Sodium (Protonix Inj) 40 mg IVP DAILY [facility] Last Admin: 10/31/16 11:19 Dose: Not Given - Labs Labs: 10/31/16 06:10 10/31/16 09:49 PT 10.9 Seconds (9.9-11.8) 10/30/16 08:36 INR 1.01 (0.93-1.08) 10/30/16 08:36 APTT 23.0 Seconds (23.7-30.8) L 10/30/16 08:36 Attending/Attestation - Attestation I have personally seen and examined this patient.: Yes I have fully participated in the care of the patient.: Yes I have reviewed all pertinent clinical information, including history, physical exam and plan: Yes Notes (Text): 10/31/16 16:13 Patient was seen and examined with medical detail representative. 61 yo woman with PMH of CAD and HTN ,hyperlipidemia with big ischemic stroke in L MCA territory, has dense right sided hemeplegia mental status is still poor, patient is unable to swallow, if unable to swallow , will need enteral feeding with NG tube. Tele is negative for any arrythmia. Blood pressure is better controlled, will avoid any anti hypertensive medications at this time.
--- NOTE | 2016-10-31 15:55 | CARD ---
APPROVED REPORT EXAM: Two-dimensional and M-mode echocardiogram with Doppler and color Doppler. INDICATION CVA/TIA 2D DIMENSIONS Left Atrium (2D)2.8 (1.6-4.0cm)IVSd0.9 (0.7-1.1cm) LVDd3.6 (3.9-5.9cm)PWd1.0 (0.7-1.1cm) LVDs2.5 (2.5-4.0cm)FS (%) 30.1 % LVEF (%)58.3 (>50%) M-Mode DIMENSIONS Aortic Root2.80 (2.2-3.7cm)Aortic Cusp Exc.1.90 (1.5-2.0cm) Aortic Valve AoV Peak Ztusgmse551.0cm/Silvano Peak GR.11mmHg Mitral Valve MV E Yablcetw18.0cm/sMV A Hgurojgu386.0cm/sE/A ratio0.8 TDI Lateral E' Peak V8.29cm/sMedial E' Peak V6.34cm/sE/Lateral E'9.7 E/Medial E'12.6 Pulmonary Valve PV Peak Asfqzfyw06.2cm/sPV Peak Grad.1mmHg Tricuspid Valve TR Peak Bvqquosd652sy/sRAP KXEGUYPE50wcNeBR Peak Gr.21mmHg [id number] LEFT VENTRICLE The left ventricle is normal size. There is normal left ventricular wall thickness. The left ventricular function is normal. The left ventricular ejection fraction is within the normal range. There is normal LV segmental wall motion. Transmitral Doppler flow pattern is Grade I-abnormal relaxation pattern. RIGHT VENTRICLE The right ventricle is normal size. There is normal right ventricular wall thickness. The right ventricular systolic function is normal. ATRIA The left atrium size is normal. The right atrium size is normal. AORTIC VALVE The aortic valve is normal in structure. No aortic regurgitation is present. MITRAL VALVE The mitral valve is normal in structure. There is no mitral valve regurgitation noted. TRICUSPID VALVE There is trace to mild tricuspid regurgitation. GREAT VESSELS The aortic root is normal in size. The IVC is normal in size and collapses >50% with inspiration. PERICARDIAL EFFUSION There is no pericardial effusion. <Conclusion> The left ventricle is normal size. There is normal left ventricular wall thickness. The left ventricular function is normal. The left ventricular ejection fraction is within the normal range. There is normal LV segmental wall motion. Transmitral Doppler flow pattern is Grade I-abnormal relaxation pattern.
[2016-11-01 05:48] LABS: ADD MANUAL DIFF? NO; BASO # 0.01 K/mm3 (0.0-2.0); BASO % 0.2 % (0.0-3.0); GRAN # 3.05 (1.4-6.5); GRAN % 51.1 % (50.0-68.0); HEMATOCRIT 44.1 % (36.0-48.0); LYMPH # 2.3 (1.2-3.4); LYMPH % 38.6 % (22.0-35.0); MEAN CELL VOLUME 83.1 fL (80.0-105.0); MEAN CORPUSCULAR HGB CONC 34.9 g/dl (31.0-37.0); MEAN PLATELET VOLUME 9.8 fl (7.0-11.0); MONO # 0.6 (0.1-0.6); MONO % 10.1 % (1.0-6.0); PLATELET COUNT 222 10^3/uL (120.0-450.0); RED CELL DISTRIBUTION WIDTH 12.6 % (11.5-14.5)
[2016-11-01 06:35] LABS: ALB/GLOB RATIO 1.2 (1.1-1.8); ALKALINE PHOSPHATASE 97 U/L (38-133); ALT/SGPT 52 U/L (7-56); AST/SGOT 40 U/L (15-39); BILIRUBIN,TOTAL 1.4 mg/dL (0.2-1.3); BLOOD UREA NITROGEN 16 mg/dL (7-21); CALCIUM 9.6 mg/dL (8.4-10.5); CARBON DIOXIDE 24 mmol/L (21-33); CHLORIDE 102 mmol/L (98-107); GFR AFRICAN-AMERICAN > 60; GLUCOSE,RANDOM 198 mg/dL (70-110); POTASSIUM 3.9 mmol/L (3.6-5.0); SODIUM 138 mmol/L (132-148); TOTAL PROTEIN 7.5 g/dL (5.8-8.3)
[2016-11-01] MEDS: Insulin Reg-LOW-Coverage SC SCH ×4 (09:09→22:30)
[2016-11-01] MEDS: Enoxaparin 40 mg Syringe SC SCH (09:10)
--- NOTE | 2016-11-01 09:54 | CP.PCM.PN ---
<Nilo Andrade - Last Filed: 11/01/16 12:38> Subjective - Date & Time of Evaluation Date of Evaluation: 11/01/16 Time of Evaluation: 09:30 - Subjective Subjective: PGY-1 Neurology Progress Note for Dr. Castellano's Service: Patient seen and examined at bedside. The daughter was there at bedside. Patient 's responsiveness is improved. Able to follow simple directions. Daughter states that the patient retracted her right arm yesterday when blood was drawn. This was a reflexive withdrawal to pain, and there remains no tone in the extremity. The daughter had pathology reports from [facility] from earlier in 2017 from lymph node biopsy. Patient has diffuse large B cell lymphoma CD20+. Objective - Vital Signs/Intake and Output Vital Signs (last 24 hours): Temp Pulse Resp BP Pulse Ox 99.7 F H 108 H 17 142/84 96 11/01/16 09:08 11/01/16 08:00 11/01/16 08:00 11/01/16 08:00 11/01/16 08:00 Intake and Output: 11/01/16 11/01/16 06:59 18:59 Intake Total 0 Output Total 200 Balance -200 - Medications Medications: Current Medications Aspirin (Aspirin Supp) 300 mg RC DAILY [facility] Last Admin: 11/01/16 09:08 Dose: 300 mg Atorvastatin Calcium (Lipitor) 80 mg PO DAILY [facility] Last Admin: 11/01/16 09:10 Dose: 80 mg Enoxaparin Sodium (Lovenox) 40 mg SC DAILY [facility] PRN Reason: Protocol Last Admin: 11/01/16 09:10 Dose: 40 mg Insulin Human Regular (Humulin R Low) 0 units SC ACHS [facility] PRN Reason: Protocol Last Admin: 11/01/16 09:09 Dose: 1 units Metoprolol Tartrate (Lopressor) 5 mg IVP Q6 PRN PRN Reason: Systolic Blood Pressure Pantoprazole Sodium (Protonix Inj) 40 mg IVP DAILY [facility] Last Admin: 11/01/16 09:10 Dose: 40 mg - Labs Labs: 11/01/16 05:00 11/01/16 05:45 PT 10.9 Seconds (9.9-11.8) 10/30/16 08:36 INR 1.01 (0.93-1.08) 10/30/16 08:36 APTT 23.0 Seconds (23.7-30.8) L 10/30/16 08:36 - Constitutional Appears: No Acute Distress (drowsy) - Head Exam Head Exam: ATRAUMATIC, NORMAL INSPECTION, NORMOCEPHALIC - ENT Exam ENT Exam: Mucous Membranes Moist - Respiratory Exam Respiratory Exam: Clear to Ausculation Bilateral - Cardiovascular Exam Cardiovascular Exam: REGULAR RHYTHM - GI/Abdominal Exam GI & Abdominal Exam: Normal Bowel Sounds - Neurological Exam Additional comments: Right sided facial droop. Right sided flacid hemiparesis. Right sided flor-neglect. Spontaneously opens both eyes. Able to move left upper and lower extremities. Bilateral upper extremities 3/4 reflexes. Bilateral lower extremities 2+/4 reflexes. 2-3 beats of clonus bilaterally in the lower extremities right>left. Up-going plantar response on right. Down-going plantar response on left. Assessment and Plan - Assessment and Plan (Free Text) Assessment: This is a 61 year old female with PMHx CAD s/p PCI x2, HTN who presented to the ED with right sided weakness. CT reveals ischemic changes in left temporal lobe indicating a left MCA territory infarct. Right sided weakness, right sided facial droop, aphasia secondary to a left MCA territory infarct secondary to diffuse atherosclerosis. MRI consistent with large acute MCA infarct. CTA revealed patent arteries, but MRA showed left MCA occlusion. Carotid dopplers reveal bilateral 20-39% ICA stenosis. Echocardiogram is unremarkable. Newly diagnosed Diabetes Mellitus as evidenced by hemoglobin A1C 8.8. LDL 114. Hepatitis C antibody is reactive. Patient's pathology report from [facility] indicated that she has diffuse Large B-cell lymphoma which could indicate hypercoagulable state. Plan: 1) ASA 81 mg, Plavix 75 mg and Atorvastatin 80 mg daily. Can reduce Atorvastatin to 40 mg after 21 days. 2) PT/OT/ [employer] evaluation and treatment 3) Follow up with public health social worker/employment case manager for Acute Rehab placement *This patient needs acute rehab. Spoken with daughter at bedside. Case discussed with Dr. Nona Andrade, PGY-1 <Rodrigo Castellano - Last Filed: 11/01/16 14:14> Objective - Vital Signs/Intake and Output Vital Signs (last 24 hours): Temp Pulse Resp BP Pulse Ox 99.5 F 105 H 21 158/86 H 97 11/01/16 11:59 11/01/16 12:10 11/01/16 12:10 11/01/16 12:00 11/01/16 12:10 Intake and Output: 11/01/16 11/01/16 06:59 18:59 Intake Total 0 Output Total 200 Balance -200 - Medications Medications: Current Medications Aspirin (Aspirin Supp) 300 mg RC DAILY [facility] Last Admin: 11/01/16 09:08 Dose: 300 mg Atorvastatin Calcium (Lipitor) 40 mg PO DIN [facility] Enoxaparin Sodium (Lovenox) 40 mg SC DAILY [facility] PRN Reason: Protocol Last Admin: 11/01/16 09:10 Dose: 40 mg Insulin Human Regular (Humulin R Low) 0 units SC ACHS [facility] PRN Reason: Protocol Last Admin: 11/01/16 12:03 Dose: 2 units Metoprolol Tartrate (Lopressor) 5 mg IVP Q6 PRN PRN Reason: Systolic Blood Pressure Pantoprazole Sodium (Protonix Inj) 40 mg IVP DAILY [facility] Last Admin: 11/01/16 09:10 Dose: 40 mg - Labs Labs: 11/01/16 05:00 11/01/16 05:45 PT 10.9 Seconds (9.9-11.8) 10/30/16 08:36 INR 1.01 (0.93-1.08) 10/30/16 08:36 APTT 23.0 Seconds (23.7-30.8) L 10/30/16 08:36 Attending/Attestation - Attestation I have personally seen and examined this patient.: Yes I have fully participated in the care of the patient.: Yes I have reviewed all pertinent clinical information, including history, physical exam and plan: Yes
--- NOTE | 2016-11-01 17:52 | CP.PCM.PN ---
<Andrea Gutierrez - Last Filed: 11/01/16 17:56> Subjective - Date & Time of Evaluation Date of Evaluation: 11/01/16 Time of Evaluation: 09:00 - Subjective Subjective: Pt s/e at bedside. Pt appears to be doing better overall from yesterday, continuing her upward trend. Pts daughter also at bedside. Pt has ongoing R flor-neglect, aphasia, and R flor-paralysis, but appears to be doing better overall today. She is taking liquids and medications PO with assistance. She is more responsive and attempts to speak; although, she continues to be non-verbal. History limited 2/2 to language barrier and ongoing aphasia. Dr. Andrade on neurology service is fluent in Occitan and aided in translation today. Objective - Vital Signs/Intake and Output Vital Signs (last 24 hours): Temp Pulse Resp BP Pulse Ox 99.3 F 109 H 33 H 160/78 H 99 11/01/16 16:00 11/01/16 16:50 11/01/16 16:50 11/01/16 16:00 11/01/16 16:50 Intake and Output: 11/01/16 11/01/16 06:59 18:59 Intake Total 0 120 Output Total 200 150 Balance -200 -30 - Medications Medications: Current Medications Aspirin (Aspirin Supp) 300 mg RC DAILY [facility] Last Admin: 11/01/16 09:08 Dose: 300 mg Atorvastatin Calcium (Lipitor) 40 mg PO DIN [facility] Last Admin: 11/01/16 16:09 Dose: Not Given Enoxaparin Sodium (Lovenox) 40 mg SC DAILY [facility] PRN Reason: Protocol Last Admin: 11/01/16 09:10 Dose: 40 mg Insulin Human Regular (Humulin R Low) 0 units SC ACHS [facility] PRN Reason: Protocol Last Admin: 11/01/16 16:38 Dose: 1 units Metoprolol Tartrate (Lopressor) 5 mg IVP Q6 PRN PRN Reason: Systolic Blood Pressure Pantoprazole Sodium (Protonix Inj) 40 mg IVP DAILY [facility] Last Admin: 11/01/16 09:10 Dose: 40 mg - Labs Labs: 11/01/16 05:00 11/01/16 05:45 PT 10.9 Seconds (9.9-11.8) 10/30/16 08:36 INR 1.01 (0.93-1.08) 10/30/16 08:36 APTT 23.0 Seconds (23.7-30.8) L 10/30/16 08:36 - Additional Findings Additional findings: Vitals: T 99.7F HR 108 BP 142/84 R 17 O2 sat 96% on RA I/O: 250/550 PEx: General: Lethargic-appearing woman, NAD. Well-nourished. Non-toxic appearance. Head of bed at 0 degreesraised to 35 degrees on exam. HEENT: head NC, AT. MMM. PEERL. Unable to test extraocular movements 2/2 AMS. Some persistent R ptosis. Persistent R lateral gaze deficit. No conjunctival pallor or scleral icterus. No proptosis. Neck: supple, with full active ROM. Lungs: Normal work of breathing. No accessory m. use. No oral or distal cyanosis. CTAB. No w/r/r. Cardio: RRR normal S1 and S2. No m/r/g. No cyanosis or clubbing observed. Neuro: Pt awake, opening nonverbal, aphasic. R-sided flor-neglect present. Pt follows commands issued from the L side. Unresponsive to painful stimuli in RUE and RLE. Unable to move extremities past midline. 0/5 strength and tone in RUE and RLE. 4/5 strength in LUE and LLE. MSK: no pitting edema in bilateral extremities. Skin: skin over distal extremities warm, dry, intact. No rash on exam. Assessment and Plan - Assessment and Plan (Free Text) Assessment: A/P: 61 yo F w PMHx CAD and HTN s/p L ischemic stroke in MCA territory two days ago. On exam, pt demonstrates mild improvement. She is slightly more alert and, although still non-verbal, attempts phonation when asked questions in her campo language from the L side of the bed. Vitals have been stable overnight. 1. CVA ischemic stroke in L MCA territory with no mass effect or hemorrhage seen. -Neurology remains on c/s: start atorvastatin 80 mg PO daily. Will reduce atorvastatin to 40 mg after 21 days. Start clopidegrel 75 mg daily and continue ASA 81 mg daily. But pt is only getting 40 mg Atorva 2/2 liver function. -Continue neurochecks q1h -Advance diet to modified liquid diet/dysphagia diet per Dr. Israel -PT/OT swallow study -Social work and case management: stroke rehab followup for pt. -Speech pathology c/s: discuss plan for speech therapy and eval for dysphagia -Seizure precautions -Fall precautions 2. Elevated liver enzymes: -Pt is HCV Ab positive. RNA pending -Negative for HBV 3. PMHx HTN -Continue metoprolol 5mg IV q6h PRN. No longer permissive HTN, because more than 48 hours after stroke 4. Hyperglycemia: -Humalog sliding scale -Continue to monitor CMP 5. Leukopenia -WBC 3.2 on admission, up to 5.9 yesterday, now 6.0 6. Prophylaxis -DVT: Lovenox -GI: pantoprazole 40mg <Christine LIRIANO,Simone - Last Filed: 11/03/16 14:37> Objective - Vital Signs/Intake and Output Vital Signs (last 24 hours): Temp Pulse Resp BP Pulse Ox 98.9 F 84 20 140/83 98 11/03/16 12:00 11/03/16 12:00 11/03/16 12:00 11/03/16 12:00 11/03/16 06:00 Intake and Output: 11/03/16 11/03/16 06:59 18:59 Intake Total 600 Balance 600 - Medications Medications: Current Medications Acetaminophen (Tylenol 325mg Tab) 650 mg PO Q6H PRN PRN Reason: Fever >100.4 F Aspirin (Aspirin Chewable) 81 mg PO DAILY [facility] Last Admin: 11/03/16 10:27 Dose: 81 mg Atorvastatin Calcium (Lipitor) 40 mg PO DIN [facility] Last Admin: 11/02/16 17:38 Dose: 40 mg Clopidogrel Bisulfate (Plavix) 75 mg PO DAILY [facility] Last Admin: 11/03/16 10:27 Dose: 75 mg Enoxaparin Sodium (Lovenox) 40 mg SC DAILY [facility] PRN Reason: Protocol Last Admin: 11/03/16 10:27 Dose: 40 mg Insulin Human Regular (Humulin R Low) 0 units SC ACHS [facility] PRN Reason: Protocol Last Admin: 11/03/16 12:36 Dose: 2 units Metoprolol Tartrate (Lopressor) 25 mg PO BID [facility] Pantoprazole Sodium (Protonix Inj) 40 mg IVP DAILY [facility] Last Admin: 11/03/16 10:27 Dose: 40 mg - Labs Labs: 11/03/16 05:30 11/03/16 05:30 PT 10.9 Seconds (9.9-11.8) 10/30/16 08:36 INR 1.01 (0.93-1.08) 10/30/16 08:36 APTT 23.0 Seconds (23.7-30.8) L 10/30/16 08:36 Attending/Attestation - Attestation I have personally seen and examined this patient.: Yes I have fully participated in the care of the patient.: Yes I have reviewed all pertinent clinical information, including history, physical exam and plan: Yes Notes (Text): 11/03/16 14:29 Patient was seen and examined with vp medical. 61 yo woman with PMH of CAD and HTN ,hyperlipidemia with big ischemic stroke in L MCA territory, has dense right sided hemeplegia mental status is slowly improving, patient is on Puree diet, need to be observed closely for aspiration.Tele is negative for any arrhythmia. Blood pressure is better controlled, Management plan was discussed with family who is at bed side. Education was provided.
[2016-11-02] MEDS ORDERED: Metoprolol 1 mg/ml Inj IVP PRN ×2 (05:28→17:48)
[2016-11-02 06:01] LABS: HOMOCYSTEINE 13.9 umol/L (<10.4)
[2016-11-02 06:51] LABS: ADD MANUAL DIFF? NO
[2016-11-02 07:09] LABS: BASO # 0.02 K/mm3 (0.0-2.0); BASO % 0.4 % (0.0-3.0); EOS % 0.2 % (1.5-5.0); GRAN # 2.45 (1.4-6.5); GRAN % 46.2 % (50.0-68.0); LYMPH # 2.2 (1.2-3.4); LYMPH % 41.5 % (22.0-35.0); MEAN CELL VOLUME 82.7 fL (80.0-105.0); MEAN CORPUSCULAR HEMOGLOBIN 28.6 pg (25.0-35.0); MEAN CORPUSCULAR HGB CONC 34.5 g/dl (31.0-37.0); MEAN PLATELET VOLUME 9.6 fl (7.0-11.0); MONO # 0.6 (0.1-0.6); MONO % 11.7 % (1.0-6.0); PLATELET COUNT 223 10^3/uL (120.0-450.0); RED CELL DISTRIBUTION WIDTH 12.5 % (11.5-14.5); WHITE BLOOD COUNT 5.3 10^3/ul (4.5-11.0)
[2016-11-02 07:23] LABS: ALB/GLOB RATIO 1.1 (1.1-1.8); ALKALINE PHOSPHATASE 88 U/L (38-133); ALT/SGPT 42 U/L (7-56); AST/SGOT 46 U/L (15-39); BILIRUBIN,TOTAL 1.7 mg/dL (0.2-1.3); BLOOD UREA NITROGEN 19 mg/dL (7-21); CALCIUM 9.6 mg/dL (8.4-10.5); CARBON DIOXIDE 26 mmol/L (21-33); CHLORIDE 102 mmol/L (98-107); GFR AFRICAN-AMERICAN > 60; GLUCOSE,RANDOM 209 mg/dL (70-110); POTASSIUM 3.9 mmol/L (3.6-5.0); SODIUM 138 mmol/L (132-148); TOTAL PROTEIN 7.5 g/dL (5.8-8.3)
[2016-11-02] MEDS: Insulin Reg-LOW-Coverage SC SCH ×5 (08:20→22:25)
[2016-11-02] MEDS: Enoxaparin 40 mg Syringe SC SCH (09:14)
--- NOTE | 2016-11-02 12:18 | RAD ---
HISTORY: Cough COMPARISON: 10/30/2016 TECHNIQUE: Chest PA and lateral FINDINGS: LUNGS: No active pulmonary disease. PLEURA: No significant pleural effusion identified. No pneumothorax apparent. CARDIOVASCULAR: Normal. OSSEOUS STRUCTURES: No significant abnormalities. VISUALIZED UPPER ABDOMEN: Normal. OTHER FINDINGS: None. IMPRESSION: No active disease.
--- NOTE | 2016-11-02 17:36 | CP.PCM.PN ---
<Andrea Gutierrez - Last Filed: 11/02/16 17:39> Subjective - Date & Time of Evaluation Date of Evaluation: 11/02/16 Time of Evaluation: 07:00 - Subjective Subjective: Patient is a 61 yo woman admitted following a large MCA stroke Pt s/e at bedside. Pt appears to be doing slightly better still from yesterday, continuing her upward trend. Pts daughter also at bedside again. Pt has ongoing aphasia, and R flor-paralysis, but appears to be doing better overall today, with some resolution of her flor-neglect. She is taking liquids and medications PO with assistance. She continues to be more responsive, making sounds and following commands issued from both sides of the bed. 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 History limited 2/2 to language barrier and ongoing aphasia. Dr. Andrade on neurology service is fluent in Turkish and aided in translation today. Objective - Vital Signs/Intake and Output Vital Signs (last 24 hours): Temp Pulse Resp BP Pulse Ox 99.5 F 93 H 18 146/90 99 11/02/16 17:19 11/02/16 17:19 11/02/16 17:19 11/02/16 17:19 11/01/16 16:50 - Medications Medications: Current Medications Acetaminophen (Tylenol 325mg Tab) 650 mg PO Q6H PRN PRN Reason: Fever >100.4 F Aspirin (Aspirin Chewable) 81 mg PO DAILY [facility] Last Admin: 11/02/16 09:13 Dose: 81 mg Atorvastatin Calcium (Lipitor) 40 mg PO DIN [facility] Last Admin: 11/01/16 16:09 Dose: Not Given Clopidogrel Bisulfate (Plavix) 75 mg PO DAILY [facility] Last Admin: 11/02/16 09:14 Dose: 75 mg Enoxaparin Sodium (Lovenox) 40 mg SC DAILY [facility] PRN Reason: Protocol Last Admin: 11/02/16 09:14 Dose: 40 mg Insulin Human Regular (Humulin R Low) 0 units SC ACHS [facility] PRN Reason: Protocol Last Admin: 11/02/16 12:06 Dose: Not Given Pantoprazole Sodium (Protonix Inj) 40 mg IVP DAILY [facility] Last Admin: 11/02/16 09:14 Dose: 40 mg - Labs Labs: 11/02/16 06:30 11/02/16 06:30 PT 10.9 Seconds (9.9-11.8) 10/30/16 08:36 INR 1.01 (0.93-1.08) 10/30/16 08:36 APTT 23.0 Seconds (23.7-30.8) L 10/30/16 08:36 - Constitutional Appears: Well - Additional Findings Additional findings: Physical Examination: General: mildly lethargic-appearing woman, NAD. Well-nourished. Non-toxic appearance. Head of bed at semi-Fowlers. HEENT: head NC, AT. MMM. PEERL. Unable to test extraocular movements 2/2 AMS and aphasia. Some persistent R ptosis. Persistent R lateral gaze deficit. No conjunctival pallor or scleral icterus. No proptosis. Neck: supple, with full active ROM. Lungs: Normal work of breathing. No accessory m. use. No oral or distal cyanosis. CTAB. No w/r/r. Cardio: RRR normal S1 and S2. No m/r/g. No cyanosis or clubbing observed. Neuro: Pt awake, opening eyes spontaneously, nonverbal, aphasic. Some R sided inattention present. Pt follows commands issued from the L side. Unresponsive to painful stimuli in RUE and RLE. Unable to move extremities past midline. 0/5 strength and tone in RUE and RLE. 4/5 strength in LUE and LLE. MSK: no pitting edema in bilateral extremities. Skin: skin over distal extremities warm, dry, intact. No rash on exam. Assessment and Plan - Assessment and Plan (Free Text) Assessment: A/P: 61 yo F w PMHx CAD and HTN s/p L ischemic stroke in MCA territory three days ago. On exam, pt demonstrates mild improvement. She remains non-verbal, but her flor-neglect appears to have evolved from yesterday. Vitals continue to be stable overnight. 1. CVA ischemic stroke in L MCA territory with no mass effect or hemorrhage seen. -Social work and case management: stroke rehab followup for pt. Consider possible subacute rehab for patient. -Speech and language pathology c/s: discuss plan for speech therapy and eval for dysphagia -ASA 81 mg, Plavix 75 mg daily -Continue modified liquids diet. -Continue neurochecks q4h -Advance diet to modified liquid diet/dysphagia diet per Dr. Israel -Seizure precautions, fall precautions -Aspiration precautions 2. Positive hepatitis C -Await HCV viral RNA qual 3. PMHx HTN -No longer permissive HTN - Give lopressor PRN per dose in JUN 4. Hyperglycemia: -Continue Humalog sliding scale -Continue to monitor CMP 5. Fever -Low-grade fever has resolved today. -Continue Tylenol 650mg q6h PRN as needed for fever -Await results of blood and urine cultures 5. Leukopenia -WBC 3.2 on admission, up to 5.9 yesterday, now 5.3 6. Prophylaxis -DVT: Lovenox 40 -GI: pantoprazole 40mg <Simone King MD - Last Filed: 11/03/16 14:44> Objective - Vital Signs/Intake and Output Vital Signs (last 24 hours): Temp Pulse Resp BP Pulse Ox 98.9 F 84 20 140/83 98 11/03/16 12:00 11/03/16 12:00 11/03/16 12:00 11/03/16 12:00 11/03/16 06:00 Intake and Output: 11/03/16 11/03/16 06:59 18:59 Intake Total 600 Balance 600 - Medications Medications: Current Medications Acetaminophen (Tylenol 325mg Tab) 650 mg PO Q6H PRN PRN Reason: Fever >100.4 F Aspirin (Aspirin Chewable) 81 mg PO DAILY [facility] Last Admin: 11/03/16 10:27 Dose: 81 mg Atorvastatin Calcium (Lipitor) 40 mg PO DIN [facility] Last Admin: 11/02/16 17:38 Dose: 40 mg Clopidogrel Bisulfate (Plavix) 75 mg PO DAILY [facility] Last Admin: 11/03/16 10:27 Dose: 75 mg Enoxaparin Sodium (Lovenox) 40 mg SC DAILY [facility] PRN Reason: Protocol Last Admin: 11/03/16 10:27 Dose: 40 mg Insulin Human Regular (Humulin R Low) 0 units SC ACHS [facility] PRN Reason: Protocol Last Admin: 11/03/16 12:36 Dose: 2 units Metoprolol Tartrate (Lopressor) 25 mg PO BID [facility] Pantoprazole Sodium (Protonix Inj) 40 mg IVP DAILY [facility] Last Admin: 11/03/16 10:27 Dose: 40 mg - Labs Labs: 11/03/16 05:30 11/03/16 05:30 PT 10.9 Seconds (9.9-11.8) 10/30/16 08:36 INR 1.01 (0.93-1.08) 10/30/16 08:36 APTT 23.0 Seconds (23.7-30.8) L 10/30/16 08:36 Attending/Attestation - Attestation I have personally seen and examined this patient.: Yes I have fully participated in the care of the patient.: Yes I have reviewed all pertinent clinical information, including history, physical exam and plan: Yes Notes (Text): 11/03/16 14:39 Patient was seen and examined with medical insurance coder. 61 yo woman with PMH of CAD and HTN ,hyperlipidemia with big ischemic stroke in L MCA territory,more awake, follow command most of the time, still has dense right sided hemeplegia mental status is slowly improving, on Puree diet, need to be observed closely for aspiration.Tele is negative for any arrhythmia. Patient is having low grade fever, etiology is unclear, had intermittent coughing during eating, concern for aspiration, will get chest X ray and UA.Low grade fever could be from Lymphoma. Management plan was discussed with family who is at bed side. Education was provided.
[2016-11-03 06:22] LABS: ADD MANUAL DIFF? NO
[2016-11-03 06:30] LABS: BASO # 0.01 K/mm3 (0.0-2.0); BASO % 0.2 % (0.0-3.0); EOS % 0.8 % (1.5-5.0); GRAN # 2.39 (1.4-6.5); GRAN % 50.6 % (50.0-68.0); HEMATOCRIT 42.2 % (36.0-48.0); LYMPH # 1.7 (1.2-3.4); LYMPH % 35.7 % (22.0-35.0); MEAN CELL VOLUME 82.4 fL (80.0-105.0); MEAN CORPUSCULAR HEMOGLOBIN 28.9 pg (25.0-35.0); MEAN CORPUSCULAR HGB CONC 35.1 g/dl (31.0-37.0); MEAN PLATELET VOLUME 9.6 fl (7.0-11.0); MONO # 0.6 (0.1-0.6); MONO % 12.7 % (1.0-6.0); PLATELET COUNT 239 10^3/uL (120.0-450.0); RED CELL DISTRIBUTION WIDTH 12.3 % (11.5-14.5); WHITE BLOOD COUNT 4.7 10^3/ul (4.5-11.0)
[2016-11-03 06:41] LABS: ALB/GLOB RATIO 1.1 (1.1-1.8); ALKALINE PHOSPHATASE 85 U/L (38-133); ALT/SGPT 36 U/L (7-56); AST/SGOT 42 U/L (15-39); BILIRUBIN,TOTAL 1.4 mg/dL (0.2-1.3); BLOOD UREA NITROGEN 20 mg/dL (7-21); CALCIUM 9.5 mg/dL (8.4-10.5); CARBON DIOXIDE 26 mmol/L (21-33); CHLORIDE 101 mmol/L (98-107); GFR AFRICAN-AMERICAN > 60; GLUCOSE,RANDOM 220 mg/dL (70-110); POTASSIUM 4.1 mmol/L (3.6-5.0); SODIUM 136 mmol/L (132-148); TOTAL PROTEIN 7.5 g/dL (5.8-8.3)
[2016-11-03] MEDS: Insulin Reg-LOW-Coverage SC SCH ×4 (08:24→22:07)
[2016-11-03] MEDS: Enoxaparin 40 mg Syringe SC SCH (10:27)
--- NOTE | 2016-11-03 21:32 | CP.PCM.PN ---
<BrendaAndrea - Last Filed: 11/03/16 21:29> Subjective - Date & Time of Evaluation Date of Evaluation: 11/03/16 Time of Evaluation: 07:30 - Subjective Subjective: Pt s/e at bedside. Continues to have right sided paralysis. R hemineglect appears to be resolved. Patient is making efforts to speak, is eating well, and is moving left extremities well. Needs acute rehab, family is concerned about how they will get rehab care. S/W stated that janine care will not be possible. Objective - Vital Signs/Intake and Output Vital Signs (last 24 hours): Temp Pulse Resp BP Pulse Ox 98.3 F 98 H 19 137/81 96 11/03/16 18:00 11/03/16 18:05 11/03/16 18:00 11/03/16 18:05 11/03/16 18:00 Intake and Output: 11/03/16 11/04/16 18:59 06:59 Intake Total 240 Balance 240 - Medications Medications: Current Medications Acetaminophen (Tylenol 325mg Tab) 650 mg PO Q6H PRN PRN Reason: Fever >100.4 F Aspirin (Aspirin Chewable) 81 mg PO DAILY [facility] Last Admin: 11/03/16 10:27 Dose: 81 mg Atorvastatin Calcium (Lipitor) 40 mg PO DIN [facility] Last Admin: 11/03/16 18:06 Dose: 40 mg Clopidogrel Bisulfate (Plavix) 75 mg PO DAILY [facility] Last Admin: 11/03/16 10:27 Dose: 75 mg Enoxaparin Sodium (Lovenox) 40 mg SC DAILY [facility] PRN Reason: Protocol Last Admin: 11/03/16 10:27 Dose: 40 mg Insulin Human Regular (Humulin R Low) 0 units SC ACHS [facility] PRN Reason: Protocol Last Admin: 11/03/16 18:07 Dose: 1 units Metoprolol Tartrate (Lopressor) 25 mg PO BID [facility] Last Admin: 11/03/16 18:05 Dose: 25 mg Pantoprazole Sodium (Protonix Inj) 40 mg IVP DAILY [facility] Last Admin: 11/03/16 10:27 Dose: 40 mg - Labs Labs: 11/03/16 05:30 11/03/16 05:30 PT 10.9 Seconds (9.9-11.8) 10/30/16 08:36 INR 1.01 (0.93-1.08) 10/30/16 08:36 APTT 23.0 Seconds (23.7-30.8) L 10/30/16 08:36 Assessment and Plan - Assessment and Plan (Free Text) Assessment: Ms. Partida is a 61 y/o F s/p stroke. 1. CVA ischemic stroke in L MCA territory with no mass effect or hemorrhage seen. -Social work and case management: stroke rehab followup for pt. Consider possible subacute rehab for patient. -Speech and language pathology c/s: discuss plan for speech therapy and eval for dysphagia -ASA 81 mg, Plavix 75 mg daily -Continue modified liquids diet. -Continue neurochecks q4h -Advance diet to modified liquid diet/dysphagia diet per Dr. Israel -Seizure precautions, fall precautions -Aspiration precautions -D/C Tele 2. Positive hepatitis C -Await HCV viral RNA qual 3. PMHx HTN -No longer permissive HTN - Give lopressor PRN per dose in JUN 4. Hyperglycemia: -Continue Humalog sliding scale -Continue to monitor CMP 5. Fever - resolved. -Continue Tylenol 650mg q6h PRN as needed for fever -Await results of blood and urine cultures 5. Leukopenia - resolved 6. Prophylaxis -DVT: Lovenox 40 -GI: pantoprazole 40mg <Christine [facility]IRIANO,[facility] - Last Filed: 11/04/16 12:35> Objective - Vital Signs/Intake and Output Vital Signs (last 24 hours): Temp Pulse Resp BP Pulse Ox 98.9 F 94 H 18 135/86 96 11/04/16 08:14 11/04/16 08:14 11/04/16 08:14 11/04/16 08:14 11/04/16 08:14 Intake and Output: 11/04/16 11/04/16 06:59 18:59 Intake Total 240 0 Balance 240 0 - Medications Medications: Current Medications Acetaminophen (Tylenol 325mg Tab) 650 mg PO Q6H PRN PRN Reason: Fever >100.4 F Aspirin (Aspirin Chewable) 81 mg PO DAILY [facility] Last Admin: 11/04/16 09:48 Dose: 81 mg Atorvastatin Calcium (Lipitor) 40 mg PO DIN [facility] Last Admin: 11/03/16 18:06 Dose: 40 mg Clopidogrel Bisulfate (Plavix) 75 mg PO DAILY [facility] Last Admin: 11/04/16 09:48 Dose: 75 mg Enoxaparin Sodium (Lovenox) 40 mg SC DAILY [facility] PRN Reason: Protocol Last Admin: 11/04/16 09:48 Dose: 40 mg Insulin Human Regular (Humulin R Low) 0 units SC ACHS [facility] PRN Reason: Protocol Last Admin: 11/04/16 09:48 Dose: 2 units Metoprolol Tartrate (Lopressor) 25 mg PO BID [facility] Last Admin: 11/04/16 09:48 Dose: 25 mg Pantoprazole Sodium (Protonix Inj) 40 mg IVP DAILY [facility] Last Admin: 11/04/16 09:48 Dose: 40 mg - Labs Labs: 11/04/16 06:00 11/04/16 06:00 PT 10.9 Seconds (9.9-11.8) 10/30/16 08:36 INR 1.01 (0.93-1.08) 10/30/16 08:36 APTT 23.0 Seconds (23.7-30.8) L 10/30/16 08:36 Attending/Attestation - Attestation I have personally seen and examined this patient.: Yes I have fully participated in the care of the patient.: Yes I have reviewed all pertinent clinical information, including history, physical exam and plan: Yes Notes (Text): 11/04/16 12:34 Patient was seen and examined with electromedical equipment technician. 61 yo woman with PMH of CAD and HTN ,hyperlipidemia with big ischemic stroke in L MCA territory,more awake, follow command most of the time, still has dense right sided hemeplegia mental status is slowly improving, on Puree diet, need to be observed closely for aspiration.Tele is negative for any arrhythmia. Patient is afebrile, blood pressure is runing high, will start on Metoprolol 25 mg BID Continue physical/OT and speech therapy Management plan was discussed with family who is at bed side. Education was provided.
[2016-11-04 06:50] LABS: ADD MANUAL DIFF? NO
[2016-11-04 07:11] LABS: BASO # 0.02 K/mm3 (0.0-2.0); BASO % 0.4 % (0.0-3.0); EOS # 0.1 (0.0-0.7); EOS % 1.1 % (1.5-5.0); GRAN # 2.03 (1.4-6.5); GRAN % 43.3 % (50.0-68.0); HEMATOCRIT 42.1 % (36.0-48.0); LYMPH % 43.4 % (22.0-35.0); MEAN CELL VOLUME 82.5 fL (80.0-105.0); MEAN CORPUSCULAR HEMOGLOBIN 28.4 pg (25.0-35.0); MEAN CORPUSCULAR HGB CONC 34.4 g/dl (31.0-37.0); MEAN PLATELET VOLUME 9.8 fl (7.0-11.0); MONO # 0.6 (0.1-0.6); MONO % 11.8 % (1.0-6.0); PLATELET COUNT 275 10^3/uL (120.0-450.0); RED CELL DISTRIBUTION WIDTH 12.2 % (11.5-14.5); WHITE BLOOD COUNT 4.7 10^3/ul (4.5-11.0)
[2016-11-04 07:14] LABS: ALB/GLOB RATIO 1.2 (1.1-1.8); ALKALINE PHOSPHATASE 80 U/L (38-133); ALT/SGPT 35 U/L (7-56); AST/SGOT 43 U/L (15-39); BILIRUBIN,TOTAL 1.4 mg/dL (0.2-1.3); BLOOD UREA NITROGEN 21 mg/dL (7-21); CALCIUM 9.5 mg/dL (8.4-10.5); CARBON DIOXIDE 25 mmol/L (21-33); CHLORIDE 100 mmol/L (98-107); GFR AFRICAN-AMERICAN > 60; GLUCOSE,RANDOM 235 mg/dL (70-110); POTASSIUM 4.1 mmol/L (3.6-5.0); SODIUM 135 mmol/L (132-148); TOTAL PROTEIN 7.3 g/dL (5.8-8.3)
[2016-11-04] MEDS: Insulin Reg-LOW-Coverage SC SCH ×4 (09:48→21:53)
[2016-11-04] MEDS: Enoxaparin 40 mg Syringe SC SCH (09:48)
[2016-11-04 09:56] LABS: HEPATITIS C VIRAL RNA QUAL Detected
--- NOTE | 2016-11-04 12:39 | CP.PCM.PN ---
<BrendaAndrea - Last Filed: 11/04/16 12:35> Subjective - Date & Time of Evaluation Date of Evaluation: 11/04/16 Time of Evaluation: 09:00 - Subjective Subjective: Pt s/e at bedside. Continues to have R sided paralysis. R hemineglect appears to be resolved. Patient is making efforts to speak, but is dysarthric. Tolerating dysphagia puree diet, and is moving left extremities well. Needs acute rehab, family is concerned about how they will get rehab care. S/W stated that janine care will not be possible. Objective - Vital Signs/Intake and Output Vital Signs (last 24 hours): Temp Pulse Resp BP Pulse Ox 98.9 F 94 H 18 135/86 96 11/04/16 08:14 11/04/16 08:14 11/04/16 08:14 11/04/16 08:14 11/04/16 08:14 Intake and Output: 11/04/16 11/04/16 06:59 18:59 Intake Total 240 0 Balance 240 0 - Medications Medications: Current Medications Acetaminophen (Tylenol 325mg Tab) 650 mg PO Q6H PRN PRN Reason: Fever >100.4 F Aspirin (Aspirin Chewable) 81 mg PO DAILY [facility] [place] Last Admin: 11/04/16 09:48 Dose: 81 mg Atorvastatin Calcium (Lipitor) 40 mg PO DIN [facility] [place] Last Admin: 11/03/16 18:06 Dose: 40 mg Clopidogrel Bisulfate (Plavix) 75 mg PO DAILY [facility] [place] Last Admin: 11/04/16 09:48 Dose: 75 mg Enoxaparin Sodium (Lovenox) 40 mg SC DAILY [facility] [place] PRN Reason: Protocol Last Admin: 11/04/16 09:48 Dose: 40 mg Insulin Human Regular (Humulin R Low) 0 units SC ACHS [facility] [place] PRN Reason: Protocol Last Admin: 11/04/16 09:48 Dose: 2 units Metformin HCl (Glucophage) 500 mg PO BID [facility] [place] Metoprolol Tartrate (Lopressor) 25 mg PO BID [facility] [place] Last Admin: 11/04/16 09:48 Dose: 25 mg Pantoprazole Sodium (Protonix Inj) 40 mg IVP DAILY [facility] [place] Last Admin: 11/04/16 09:48 Dose: 40 mg - Labs Labs: 11/04/16 06:00 11/04/16 06:00 PT 10.9 Seconds (9.9-11.8) 10/30/16 08:36 INR 1.01 (0.93-1.08) 10/30/16 08:36 APTT 23.0 Seconds (23.7-30.8) L 10/30/16 08:36 - Head Exam Head Exam: ATRAUMATIC, NORMAL INSPECTION, NORMOCEPHALIC - Eye Exam Eye Exam: EOMI, Normal appearance, PERRL Pupil Exam: NORMAL ACCOMODATION, PERRL - ENT Exam ENT Exam: Mucous Membranes Moist, Normal Exam - Neck Exam Neck Exam: Normal Inspection - Respiratory Exam Respiratory Exam: Clear to Ausculation Bilateral, NORMAL BREATHING PATTERN - Cardiovascular Exam Cardiovascular Exam: REGULAR RHYTHM, +S1, +S2 - GI/Abdominal Exam GI & Abdominal Exam: Soft, Normal Bowel Sounds - Rectal Exam Rectal Exam: Deferred - Back Exam Back Exam: NORMAL INSPECTION - Neurological Exam Neurological Exam: Alert, Awake, CN II-XII Intact Additional comments: R sided hemiparesis. Dysarthric. L side UE, LE, facial muscle strength, sensation, intact. - Skin Skin Exam: Intact, Warm Assessment and Plan - Assessment and Plan (Free Text) Assessment: Ms. Partida is a 61 y/o F s/p stroke. 1. CVA ischemic stroke in L MCA territory with no mass effect or hemorrhage seen. -Social work and case management: stroke rehab followup for pt. Consider possible subacute rehab for patient. -Speech and language pathology c/s: discuss plan for speech therapy and eval for dysphagia -ASA 81 mg, Plavix 75 mg daily, Atorvastatin 40 daily -Continue modified liquids/dysphagia diet. -Continue neurochecks q4h -Seizure precautions, fall precautions -Aspiration precautions -D/C Tele 2. Positive hepatitis C -Await HCV viral RNA qual 3. PMHx HTN -No longer permissive HTN - Give lopressor PRN per dose in JUN 4. Hyperglycemia: -Continue Humalog sliding scale -Continue to monitor CMP -Add Metformin 500 bid 5. Fever - resolved. -Continue Tylenol 650mg q6h PRN as needed for fever -Await results of blood and urine cultures 5. Leukopenia - resolved 6. Prophylaxis -DVT: Lovenox 40 -GI: pantoprazole 40mg <Christine LIRIANO,Simone - Last Filed: 11/04/16 17:20> Objective - Vital Signs/Intake and Output Vital Signs (last 24 hours): Temp Pulse Resp BP Pulse Ox 98.9 F 94 H 18 135/86 96 11/04/16 08:14 11/04/16 08:14 11/04/16 08:14 11/04/16 08:14 11/04/16 08:14 Intake and Output: 11/04/16 11/04/16 06:59 18:59 Intake Total 240 240 Balance 240 240 - Medications Medications: Current Medications Acetaminophen (Tylenol 325mg Tab) 650 mg PO Q6H PRN PRN Reason: Fever >100.4 F Aspirin (Aspirin Chewable) 81 mg PO DAILY [facility] [place] Last Admin: 11/04/16 09:48 Dose: 81 mg Atorvastatin Calcium (Lipitor) 40 mg PO DIN [facility] [place] Last Admin: 11/03/16 18:06 Dose: 40 mg Clopidogrel Bisulfate (Plavix) 75 mg PO DAILY [facility] [place] Last Admin: 11/04/16 09:48 Dose: 75 mg Enoxaparin Sodium (Lovenox) 40 mg SC DAILY [facility] PRN Reason: Protocol Last Admin: 11/04/16 09:48 Dose: 40 mg Insulin Human Regular (Humulin R Low) 0 units SC ACHS [facility] PRN Reason: Protocol Last Admin: 11/04/16 12:45 Dose: 1 units Metformin HCl (Glucophage) 500 mg PO BRKDIN [facility] [place] Last Admin: 11/04/16 12:46 Dose: 500 mg Metoprolol Tartrate (Lopressor) 25 mg PO BID [facility] [place] Last Admin: 11/04/16 09:48 Dose: 25 mg Pantoprazole Sodium (Protonix Inj) 40 mg IVP DAILY [facility] [place] Last Admin: 11/04/16 09:48 Dose: 40 mg - Labs Labs: 11/04/16 06:00 11/04/16 06:00 PT 10.9 Seconds (9.9-11.8) 10/30/16 08:36 INR 1.01 (0.93-1.08) 10/30/16 08:36 APTT 23.0 Seconds (23.7-30.8) L 10/30/16 08:36 Attending/Attestation - Attestation I have personally seen and examined this patient.: Yes I have fully participated in the care of the patient.: Yes I have reviewed all pertinent clinical information, including history, physical exam and plan: Yes Notes (Text): 11/04/16 17:19 Patient was seen and examined with center medical and lab director. 61 yo woman with PMH of CAD and HTN ,hyperlipidemia with big ischemic stroke in L MCA territory,more awake, follow command most of the time, still has dense right sided hemeplegia mental status is slowly improving, on Puree diet, need to be observed closely for aspiration. Patient is afebrile, blood pressure is better controlled with Metoprolol 25 mg BID.Blood sugars are running high, we will start patient on Metformin 500 mg PO BID. Continue physical/OT and speech therapy Management plan was discussed with family who is at bed side. Education was provided. 11/04/16 17:20
[2016-11-05 06:33] LABS: ADD MANUAL DIFF? NO
[2016-11-05 06:52] LABS: ALB/GLOB RATIO 1.2 (1.1-1.8); ALKALINE PHOSPHATASE 79 U/L (38-133); ALT/SGPT 33 U/L (7-56); AST/SGOT 52 U/L (15-39); BLOOD UREA NITROGEN 26 mg/dL (7-21); CALCIUM 9.5 mg/dL (8.4-10.5); CARBON DIOXIDE 25 mmol/L (21-33); CHLORIDE 101 mmol/L (98-107); GFR AFRICAN-AMERICAN > 60; GLUCOSE,RANDOM 195 mg/dL (70-110); SODIUM 138 mmol/L (132-148); TOTAL PROTEIN 7.1 g/dL (5.8-8.3)
[2016-11-05 07:15] LABS: BASO # 0.01 K/mm3 (0.0-2.0); BASO % 0.2 % (0.0-3.0); EOS # 0.1 (0.0-0.7); EOS % 2.4 % (1.5-5.0); GRAN # 1.87 (1.4-6.5); GRAN % 40.2 % (50.0-68.0); HEMATOCRIT 43.3 % (36.0-48.0); LYMPH # 2.1 (1.2-3.4); LYMPH % 45.3 % (22.0-35.0); MEAN CELL VOLUME 83.6 fL (80.0-105.0); MEAN CORPUSCULAR HEMOGLOBIN 28.6 pg (25.0-35.0); MEAN CORPUSCULAR HGB CONC 34.2 g/dl (31.0-37.0); MEAN PLATELET VOLUME 9.8 fl (7.0-11.0); MONO # 0.6 (0.1-0.6); MONO % 11.9 % (1.0-6.0); PLATELET COUNT 272 10^3/uL (120.0-450.0); RED CELL DISTRIBUTION WIDTH 12.2 % (11.5-14.5); WHITE BLOOD COUNT 4.6 10^3/ul (4.5-11.0)
[2016-11-05] MEDS: Insulin Reg-LOW-Coverage SC SCH ×4 (07:36→21:47)
[2016-11-05] MEDS: Enoxaparin 40 mg Syringe SC SCH (09:33)
--- NOTE | 2016-11-05 14:01 | CP.PCM.PN ---
<BrendaAndrea - Last Filed: 11/05/16 13:54> Subjective - Date & Time of Evaluation Date of Evaluation: 11/05/16 Time of Evaluation: 10:00 - Subjective Subjective: Pt s/e at bedside. Continues to have R sided paralysis. R hemineglect appears to be resolved. Patient is making efforts to speak, but is dysarthric. Tolerating dysphagia puree diet, and is moving left extremities well. Needs acute rehab, family is concerned about how they will get rehab care. S/W stated that janine care will not be possible. Will f/u with [facility] tmrw. Pt is better clinically now than on first presentation. Objective - Vital Signs/Intake and Output Vital Signs (last 24 hours): Temp Pulse Resp BP Pulse Ox 99 F 88 20 130/90 98 11/05/16 08:11 11/05/16 09:34 11/05/16 08:11 11/05/16 09:34 11/05/16 08:11 Intake and Output: 11/05/16 11/05/16 06:59 18:59 Intake Total 120 Balance 120 - Medications Medications: Current Medications Acetaminophen (Tylenol 325mg Tab) 650 mg PO Q6H PRN PRN Reason: Fever >100.4 F Aspirin (Aspirin Chewable) 81 mg PO DAILY [facility] Last Admin: 11/05/16 09:33 Dose: 81 mg Atorvastatin Calcium (Lipitor) 40 mg PO DIN [facility] Last Admin: 11/04/16 17:42 Dose: 40 mg Clopidogrel Bisulfate (Plavix) 75 mg PO DAILY [facility] Last Admin: 11/05/16 09:34 Dose: 75 mg Enoxaparin Sodium (Lovenox) 40 mg SC DAILY [facility] PRN Reason: Protocol Last Admin: 11/05/16 09:33 Dose: 40 mg Insulin Human Regular (Humulin R Low) 0 units SC ACHS [facility] PRN Reason: Protocol Last Admin: 11/05/16 11:54 Dose: 3 units Metformin HCl (Glucophage) 500 mg PO BRKDIN [facility] Last Admin: 11/05/16 07:36 Dose: 500 mg Metoprolol Tartrate (Lopressor) 25 mg PO BID [facility] Last Admin: 11/05/16 09:34 Dose: 25 mg Pantoprazole Sodium (Protonix Inj) 40 mg IVP DAILY [facility] Last Admin: 11/05/16 09:33 Dose: 40 mg - Labs Labs: 11/05/16 06:00 11/05/16 06:00 PT 10.9 Seconds (9.9-11.8) 10/30/16 08:36 INR 1.01 (0.93-1.08) 10/30/16 08:36 APTT 23.0 Seconds (23.7-30.8) L 10/30/16 08:36 - Additional Findings Additional findings: Phys Exam: VS as below Constitutional: non-verbal, nad Head and Neck: neck supple, no jvd, trachea midline, carotid midline, no cervical/head mass Eyes: rossana, nonicteric sclera, eom intact ENT: auditory acuity grossly intact, throat not congested, no nasal deformity Cardio: rrr, no m/r/g, no carotid bruit, nml s1, s2 Pulm: no accessory muscle use, equal nml breath sounds bilaterally, ctab Abd: s/nt/nd, nbs x 4 q, no palpable masses Derm: no rashes, no ulcers, no lesions Extr: no edema, no cyanosis, no calf tenderness, no lesions, no varicosities Neuro: Right sided facial droop, right sided muscle strength 0, right sided sensation only to pain; left sided muscle strength 5/5, intact sensation. Pt dysarthric. Alert, unable to assess orientation Assessment and Plan - Assessment and Plan (Free Text) Assessment: Ms. Partida is a 61 y/o F s/p stroke. 1. CVA ischemic stroke in L MCA territory with no mass effect or hemorrhage seen. -Social work and case management: stroke rehab followup for pt. Consider possible subacute rehab for patient - won't get janine care. As we get closer to d/c'ing patient, need to figure out placement. -Speech and language pathology c/s: discuss plan for speech therapy and eval for dysphagia -ASA 81 mg, Plavix 75 mg daily, Atorvastatin 40 daily -Continue modified liquids/dysphagia diet. -Continue neurochecks q4h -Seizure precautions, fall precautions -Aspiration precautions -D/C Tele -Change position q2 2. Positive hepatitis C -Await HCV viral RNA qual 3. PMHx HTN -No longer permissive HTN - Give lopressor PRN per dose in JUN 4. Hyperglycemia: -Continue Humalog sliding scale -Continue to monitor CMP -Add Metformin 500 bid 5. Fever - resolved. -Continue Tylenol 650mg q6h PRN as needed for fever -Bood cultures and MRSA cultures all negative 5. Leukopenia - resolved 6. Prophylaxis -DVT: Lovenox 40 -GI: pantoprazole 40mg <Simone King MD - Last Filed: 11/05/16 16:28> Objective - Vital Signs/Intake and Output Vital Signs (last 24 hours): Temp Pulse Resp BP Pulse Ox 99.2 F 83 20 133/83 97 11/05/16 16:26 11/05/16 16:26 11/05/16 16:26 11/05/16 16:26 11/05/16 16:26 Intake and Output: 11/05/16 11/05/16 06:59 18:59 Intake Total 120 480 Balance 120 480 - Medications Medications: Current Medications Acetaminophen (Tylenol 325mg Tab) 650 mg PO Q6H PRN PRN Reason: Fever >100.4 F Aspirin (Aspirin Chewable) 81 mg PO DAILY [facility] Last Admin: 11/05/16 09:33 Dose: 81 mg Atorvastatin Calcium (Lipitor) 40 mg PO DIN [facility] Last Admin: 11/04/16 17:42 Dose: 40 mg Clopidogrel Bisulfate (Plavix) 75 mg PO DAILY [facility] Last Admin: 11/05/16 09:34 Dose: 75 mg Enoxaparin Sodium (Lovenox) 40 mg SC DAILY [facility] PRN Reason: Protocol Last Admin: 11/05/16 09:33 Dose: 40 mg Insulin Human Regular (Humulin R Low) 0 units SC ACHS [facility] PRN Reason: Protocol Last Admin: 11/05/16 11:54 Dose: 3 units Metformin HCl (Glucophage) 500 mg PO BRKDIN [facility] Last Admin: 11/05/16 07:36 Dose: 500 mg Metoprolol Tartrate (Lopressor) 25 mg PO BID [facility] Last Admin: 11/05/16 09:34 Dose: 25 mg Pantoprazole Sodium (Protonix Inj) 40 mg IVP DAILY [facility] Last Admin: 11/05/16 09:33 Dose: 40 mg - Labs Labs: 11/05/16 06:00 11/05/16 06:00 PT 10.9 Seconds (9.9-11.8) 10/30/16 08:36 INR 1.01 (0.93-1.08) 10/30/16 08:36 APTT 23.0 Seconds (23.7-30.8) L 10/30/16 08:36 Attending/Attestation - Attestation I have personally seen and examined this patient.: Yes I have fully participated in the care of the patient.: Yes I have reviewed all pertinent clinical information, including history, physical exam and plan: Yes Notes (Text): 11/05/16 16:27 Patient was seen and examined with medical support assistant. 61 yrs old female with PMH of CAD and HTN ,hyperlipidemia with big ischemic stroke in L MCA territory,more awake, follow command most of the time, still has dense right sided hemeplegia mental status is slowly improving, on Puree diet, need to be observed closely for aspiration. Patient is afebrile, blood pressure is better controlled with Metoprolol 25 mg BID.Blood sugars are running high, on Metformin 500 mg PO BID, will monitor blood sugars and adjust medications. Continue Physical/OT and speech therapy Management plan was discussed with family who is at bed side. Education was provided.
[2016-11-06 08:25] LABS: ADD MANUAL DIFF? NO
[2016-11-06 08:27] LABS: BASO # 0.01 K/mm3 (0.0-2.0); BASO % 0.2 % (0.0-3.0); EOS # 0.1 (0.0-0.7); EOS % 1.5 % (1.5-5.0); GRAN # 1.99 (1.4-6.5); GRAN % 43.5 % (50.0-68.0); HEMATOCRIT 41.6 % (36.0-48.0); LYMPH # 1.9 (1.2-3.4); LYMPH % 41.9 % (22.0-35.0); MEAN CELL VOLUME 82.4 fL (80.0-105.0); MEAN CORPUSCULAR HEMOGLOBIN 28.5 pg (25.0-35.0); MEAN CORPUSCULAR HGB CONC 34.6 g/dl (31.0-37.0); MEAN PLATELET VOLUME 9.5 fl (7.0-11.0); MONO # 0.6 (0.1-0.6); MONO % 12.9 % (1.0-6.0); PLATELET COUNT 231 10^3/uL (120.0-450.0); RED CELL DISTRIBUTION WIDTH 12.1 % (11.5-14.5); WHITE BLOOD COUNT 4.6 10^3/ul (4.5-11.0)
[2016-11-06] MEDS: Insulin Reg-LOW-Coverage SC SCH ×4 (08:40→22:47)
[2016-11-06 08:52] LABS: ALB/GLOB RATIO 1.2 (1.1-1.8); ALKALINE PHOSPHATASE 77 U/L (38-133); ALT/SGPT 39 U/L (7-56); AST/SGOT 46 U/L (15-39); BLOOD UREA NITROGEN 23 mg/dL (7-21); CALCIUM 9.5 mg/dL (8.4-10.5); CARBON DIOXIDE 27 mmol/L (21-33); CHLORIDE 99 mmol/L (95-110); GFR AFRICAN-AMERICAN > 60; GLUCOSE,RANDOM 238 mg/dL (70-110); SODIUM 136 mmol/L (132-148); TOTAL PROTEIN 6.9 g/dL (5.8-8.3)
[2016-11-06] MEDS: Enoxaparin 40 mg Syringe SC SCH (09:25)
--- NOTE | 2016-11-06 17:41 | CP.PCM.PN ---
<Asim Collins - Last Filed: 11/06/16 17:38> Subjective - Date & Time of Evaluation Date of Evaluation: 11/06/16 Time of Evaluation: 09:00 - Subjective Subjective: Pt s/e at bedside on GMF. Pt continues to exhibit R sided paralysis. She continues to be dysarthric during questioning. She is tolerating her puree diet as prescribed. Social work has stated the patient does not qualify for janine care. Discussed with family today that patient will need acute rehab for her paralysis and that she will not be safe if discharged home to be cared for by family. Objective - Vital Signs/Intake and Output Vital Signs (last 24 hours): Temp Pulse Resp BP Pulse Ox 98.7 F 81 20 137/77 97 11/06/16 08:02 11/06/16 08:02 11/06/16 08:02 11/06/16 17:19 11/06/16 08:02 Intake and Output: 11/06/16 11/06/16 06:59 18:59 Intake Total 360 120 Balance 360 120 - Medications Medications: Current Medications Acetaminophen (Tylenol 325mg Tab) 650 mg PO Q6H PRN PRN Reason: Fever >100.4 F Aspirin (Aspirin Chewable) 81 mg PO DAILY [facility] Last Admin: 11/06/16 09:25 Dose: 81 mg Atorvastatin Calcium (Lipitor) 40 mg PO DIN [facility] Last Admin: 11/06/16 17:19 Dose: 40 mg Clopidogrel Bisulfate (Plavix) 75 mg PO DAILY [facility] Last Admin: 11/06/16 09:25 Dose: 75 mg Enoxaparin Sodium (Lovenox) 40 mg SC DAILY [facility] PRN Reason: Protocol Last Admin: 11/06/16 09:25 Dose: 40 mg Insulin Human Regular (Humulin R Low) 0 units SC ACHS [facility] PRN Reason: Protocol Last Admin: 11/06/16 17:01 Dose: Not Given Metformin HCl (Glucophage) 500 mg PO BRKDIN [facility] Last Admin: 11/06/16 17:19 Dose: 500 mg Metoprolol Tartrate (Lopressor) 25 mg PO BID [facility] Last Admin: 11/06/16 17:19 Dose: 25 mg Pantoprazole Sodium (Protonix Inj) 40 mg IVP DAILY [facility] Last Admin: 11/06/16 09:24 Dose: 40 mg - Labs Labs: 11/06/16 08:17 11/06/16 08:17 PT 10.9 Seconds (9.9-11.8) 10/30/16 08:36 INR 1.01 (0.93-1.08) 10/30/16 08:36 APTT 23.0 Seconds (23.7-30.8) L 10/30/16 08:36 - Head Exam Head Exam: ATRAUMATIC, NORMAL INSPECTION - Eye Exam Eye Exam: EOMI - ENT Exam ENT Exam: Mucous Membranes Moist - Neck Exam Neck Exam: Full ROM - Respiratory Exam Respiratory Exam: Clear to Ausculation Bilateral - Cardiovascular Exam Cardiovascular Exam: REGULAR RHYTHM, +S1, +S2 - GI/Abdominal Exam GI & Abdominal Exam: Soft, Normal Bowel Sounds - Rectal Exam Rectal Exam: Deferred - Neurological Exam Neurological Exam: Alert, Awake, Oriented x3 Neuro motor strength exam: Left Upper Extremity: 5, Right Upper Extremity: 0, Left Lower Extremity: 5, Right Lower Extremity: 0 - Psychiatric Exam Psychiatric exam: Normal Affect - Skin Skin Exam: Dry, Warm - Additional Findings Additional findings: Phys Exam: VS as below Constitutional: non-verbal, nad Head and Neck: neck supple, no jvd, trachea midline, carotid midline, no cervical/head mass Eyes: rossana, nonicteric sclera, eom intact ENT: auditory acuity grossly intact, throat not congested, no nasal deformity Cardio: rrr, no m/r/g, no carotid bruit, nml s1, s2 Pulm: no accessory muscle use, equal nml breath sounds bilaterally, ctab Abd: s/nt/nd, nbs x 4 q, no palpable masses Derm: no rashes, no ulcers, no lesions Extr: no edema, no cyanosis, no calf tenderness, no lesions, no varicosities Neuro: Right sided facial droop, right sided muscle strength 0, right sided sensation only to pain; left sided muscle strength 5/5, intact sensation. Pt dysarthric. Alert, unable to assess orientation Assessment and Plan - Assessment and Plan (Free Text) Assessment: Ms. aPrtida is a 61 year old female status post stroke involving MCA infarct Plan: 1. CVA ischemic stroke in L MCA territory with no mass effect or hemorrhage seen. - Social work and case management state patient is not candidate for janine care. Pt needs subacute rehab following discharge. -Speech and language pathology c/s: discuss plan for speech therapy and eval for dysphagia -ASA 81 mg, Plavix 75 mg daily, Atorvastatin 40 daily -Continue modified liquids/dysphagia diet. -Continue neurochecks q4h -Seizure precautions, fall precautions -Aspiration precautions -D/C Tele -Change position q2 2. Positive hepatitis C -Await HCV viral RNA qual 3. PMHx HTN -No longer permissive HTN - Give lopressor PRN per dose in JUN 4. Hyperglycemia: stable -Continue Humalog sliding scale -Continue to monitor CMP -Metformin 500 bid 5. Leukopenia - resolved 6. Prophylaxis -DVT: Lovenox 40 -GI: pantoprazole 40mg <Christine LIRIANO,Simone - Last Filed: 11/10/16 08:09> Objective - Vital Signs/Intake and Output Vital Signs (last 24 hours): Temp Pulse Resp BP Pulse Ox 98 F 98 H 18 161/75 H 98 11/08/16 16:00 11/08/16 16:00 11/08/16 16:00 11/08/16 16:00 11/08/16 16:00 - Labs Labs: 11/06/16 08:17 11/06/16 08:17 PT 10.9 Seconds (9.9-11.8) 10/30/16 08:36 INR 1.01 (0.93-1.08) 10/30/16 08:36 APTT 23.0 Seconds (23.7-30.8) L 10/30/16 08:36 Attending/Attestation - Attestation I have personally seen and examined this patient.: Yes I have fully participated in the care of the patient.: Yes I have reviewed all pertinent clinical information, including history, physical exam and plan: Yes Notes (Text): 11/10/16 08:07 Patient was seen and examined with bacteriologist medical.Family is at bed side. 61 yrs old female with PMH of CAD and HTN ,hyperlipidemia with big ischemic stroke in Left MCA territory,Patient is more awake, she follow command most of the time but still has dense right sided hemeplegia, power is 0/5 in right upper and lower extremities. Mental status is slowly improving,She is on Puree , We will watch for aspiration, Patient is awaiting for placement. Management plan was discussed in detail with family.,
[2016-11-07] MEDS: Insulin Reg-LOW-Coverage SC SCH ×4 (08:47→21:49)
[2016-11-07] MEDS: Enoxaparin 40 mg Syringe SC SCH (10:15)
--- NOTE | 2016-11-07 13:50 | CP.PCM.PN ---
<Asim Collins - Last Filed: 11/07/16 14:51> Subjective - Date & Time of Evaluation Date of Evaluation: 11/07/16 Time of Evaluation: 07:25 - Subjective Subjective: Pt is s/e bedside on F. No acute events overnight. Pt continues to show Right sided paralysis and dysarthria. She is tolerating puree diet. Family has been educated on bringing in their own food and to have approval of nursing before giving it to patient. Patient placement for outpatient rehab continues to be a work in progress. Family indicated today that the patient is scheduled to return to [place] in December. Objective - Vital Signs/Intake and Output Vital Signs (last 24 hours): Temp Pulse Resp BP Pulse Ox 99.0 F 84 20 140/86 96 11/07/16 06:00 11/07/16 06:00 11/07/16 06:00 11/07/16 06:00 11/07/16 06:00 Intake and Output: 11/07/16 11/07/16 06:59 18:59 Intake Total 360 Balance 360 - Medications Medications: Current Medications Acetaminophen (Tylenol 325mg Tab) 650 mg PO Q6H PRN PRN Reason: Fever >100.4 F Aspirin (Aspirin Chewable) 81 mg PO DAILY [facility] Last Admin: 11/07/16 10:15 Dose: 81 mg Atorvastatin Calcium (Lipitor) 40 mg PO DIN [facility] Last Admin: 11/06/16 17:19 Dose: 40 mg Clopidogrel Bisulfate (Plavix) 75 mg PO DAILY [facility] Last Admin: 11/07/16 10:15 Dose: 75 mg Enoxaparin Sodium (Lovenox) 40 mg SC DAILY [facility] PRN Reason: Protocol Last Admin: 11/07/16 10:15 Dose: 40 mg Insulin Human Regular (Humulin R Low) 0 units SC ACHS [facility] PRN Reason: Protocol Last Admin: 11/07/16 12:24 Dose: 3 units Metformin HCl (Glucophage) 500 mg PO BRKDIN [facility] Last Admin: 11/07/16 08:46 Dose: 500 mg Metoprolol Tartrate (Lopressor) 25 mg PO BID [facility] Last Admin: 11/07/16 10:15 Dose: 25 mg Pantoprazole Sodium (Protonix Inj) 40 mg IVP DAILY [facility] Last Admin: 11/07/16 10:15 Dose: 40 mg - Labs Labs: 11/06/16 08:17 11/06/16 08:17 PT 10.9 Seconds (9.9-11.8) 10/30/16 08:36 INR 1.01 (0.93-1.08) 10/30/16 08:36 APTT 23.0 Seconds (23.7-30.8) L 10/30/16 08:36 - Additional Findings Additional findings: Phys Exam: VS as below Constitutional: non-verbal, nad Head and Neck: neck supple, no jvd, trachea midline, carotid midline, no cervical/head mass Eyes: rossana, nonicteric sclera, eom intact ENT: auditory acuity grossly intact, throat not congested, no nasal deformity Cardio: rrr, no m/r/g, no carotid bruit, nml s1, s2 Pulm: no accessory muscle use, equal nml breath sounds bilaterally, ctab Abd: s/nt/nd, nbs x 4 q, no palpable masses Derm: no rashes, no ulcers, no lesions Extr: no edema, no cyanosis, no calf tenderness, no lesions, no varicosities Neuro: Right sided facial droop, right sided muscle strength 0, right sided sensation only to pain; left sided muscle strength 5/5, intact sensation. Pt dysarthric. Alert, unable to assess orientation Assessment and Plan (1) CVA (cerebral vascular accident) Status: Acute - Assessment and Plan (Free Text) Assessment: Ms. Partida is a 61 year old female status post stroke involving MCA infarct Plan: 1. CVA ischemic stroke in L MCA territory with no mass effect or hemorrhage seen. -Social work and case management state patient is not candidate for janine care. Pt needs subacute rehab following discharge. -Speech and language pathology c/s: discuss plan for speech therapy and eval for dysphagia -ASA 81 mg, Plavix 75 mg daily, Atorvastatin 40 daily -Continue modified liquids/dysphagia diet. -Continue neurochecks q4h -Seizure precautions, fall precautions -Aspiration precautions -D/C Tele -Change position q2 2. Positive hepatitis C -Await HCV viral RNA qual 3. PMHx HTN -No longer permissive HTN - Give lopressor PRN per dose in JUN 4. Hyperglycemia: stable -Continue Humalog sliding scale -Continue to monitor CMP -Metformin 500 bid 5. Leukopenia - resolved 6. Prophylaxis -DVT: Lovenox 40 -GI: pantoprazole 40mg Dispo: SW and CM continue to search for placement for subacute rehab. Speaking with family patient is scheduled to return to [place] in December <Leno Casiano - Last Filed: 11/07/16 17:40> Objective - Vital Signs/Intake and Output Vital Signs (last 24 hours): Temp Pulse Resp BP Pulse Ox 99.0 F 84 20 140/86 96 11/07/16 06:00 11/07/16 06:00 11/07/16 06:00 11/07/16 06:00 11/07/16 06:00 Intake and Output: 11/07/16 11/07/16 06:59 18:59 Intake Total 360 Balance 360 - Medications Medications: Current Medications Acetaminophen (Tylenol 325mg Tab) 650 mg PO Q6H PRN PRN Reason: Fever >100.4 F Aspirin (Aspirin Chewable) 81 mg PO DAILY [facility] Last Admin: 11/07/16 10:15 Dose: 81 mg Atorvastatin Calcium (Lipitor) 40 mg PO DIN [facility] Last Admin: 11/06/16 17:19 Dose: 40 mg Clopidogrel Bisulfate (Plavix) 75 mg PO DAILY [facility] Last Admin: 11/07/16 10:15 Dose: 75 mg Enoxaparin Sodium (Lovenox) 40 mg SC DAILY [facility] PRN Reason: Protocol Last Admin: 11/07/16 10:15 Dose: 40 mg Insulin Human Regular (Humulin R Low) 0 units SC ACHS [facility] PRN Reason: Protocol Last Admin: 11/07/16 12:24 Dose: 3 units Metformin HCl (Glucophage) 500 mg PO BRKDIN [facility] Last Admin: 11/07/16 08:46 Dose: 500 mg Metoprolol Tartrate (Lopressor) 25 mg PO BID [facility] Last Admin: 11/07/16 10:15 Dose: 25 mg Pantoprazole Sodium (Protonix Inj) 40 mg IVP DAILY [facility] Last Admin: 11/07/16 10:15 Dose: 40 mg - Labs Labs: 11/06/16 08:17 11/06/16 08:17 PT 10.9 Seconds (9.9-11.8) 10/30/16 08:36 INR 1.01 (0.93-1.08) 10/30/16 08:36 APTT 23.0 Seconds (23.7-30.8) L 10/30/16 08:36 Attending/Attestation - Attestation I have personally seen and examined this patient.: Yes I have fully participated in the care of the patient.: Yes I have reviewed all pertinent clinical information, including history, physical exam and plan: Yes Notes (Text): 11/07/16 17:31 attending note; Patient seen and examined with resident. Patient's daughter by the bedside. Patient is a 61-year-old [place] female with PMH of CAD and HTN , hyperlipidemia, history of B-cell lymphoma diffuse, cardiac cath with possible PCI, hepatitis C is admitted with right-sided hemiplegia with ischemic stroke in L MCA territory. currently patient is more awake, follow command most of the time, still has dense right sided hemeplegia mental status is slowly improving. on Puree diet. aspiration precautions in place. Continue Physical/OT and speech therapy. marriage and family social worker evaluation appreciated. Patient is currently visiting from [place] and planning to go back in December.
[2016-11-08 02:52] VITALS: RESP 18
--- NOTE | 2016-11-08 06:11 | CP.PCM.PN ---
<Asim Collins - Last Filed: 11/08/16 11:21> Subjective - Date & Time of Evaluation Date of Evaluation: 11/08/16 Time of Evaluation: 07:50 - Subjective Subjective: Patient s/e on GMF this AM. No acute events overnight. Patient continues to exhibit Right sided paralysis with dysarthria still resent. Patient continues to tolerate puree diet. Patient is awaiting placement for acute rehab at this time. Objective - Vital Signs/Intake and Output Vital Signs (last 24 hours): Temp Pulse Resp BP Pulse Ox 98.9 F 71 18 158/72 H 99 11/08/16 00:01 11/08/16 00:01 11/08/16 00:01 11/08/16 00:01 11/08/16 00:01 Intake and Output: 11/07/16 11/08/16 18:59 06:59 Intake Total 360 360 Balance 360 360 - Medications Medications: Current Medications Acetaminophen (Tylenol 325mg Tab) 650 mg PO Q6H PRN PRN Reason: Fever >100.4 F Last Admin: 11/07/16 18:33 Dose: 650 mg Aspirin (Aspirin Chewable) 81 mg PO DAILY [facility] Last Admin: 11/07/16 10:15 Dose: 81 mg Atorvastatin Calcium (Lipitor) 80 mg PO DIN [facility] Clopidogrel Bisulfate (Plavix) 75 mg PO DAILY [facility] Last Admin: 11/07/16 10:15 Dose: 75 mg Enoxaparin Sodium (Lovenox) 40 mg SC DAILY [facility] PRN Reason: Protocol Last Admin: 11/07/16 10:15 Dose: 40 mg Insulin Human Regular (Humulin R Low) 0 units SC ACHS [facility] PRN Reason: Protocol Last Admin: 11/07/16 21:49 Dose: 1 units Metformin HCl (Glucophage) 500 mg PO BRKDIN [facility] Last Admin: 11/07/16 17:47 Dose: 500 mg Metoprolol Tartrate (Lopressor) 25 mg PO BID [facility] Last Admin: 11/07/16 17:47 Dose: 25 mg Pantoprazole Sodium (Protonix Inj) 40 mg IVP DAILY [facility] Last Admin: 11/07/16 10:15 Dose: 40 mg - Labs Labs: 11/06/16 08:17 11/06/16 08:17 PT 10.9 Seconds (9.9-11.8) 10/30/16 08:36 INR 1.01 (0.93-1.08) 10/30/16 08:36 APTT 23.0 Seconds (23.7-30.8) L 10/30/16 08:36 - Additional Findings Additional findings: Phys Exam: VS as below Constitutional: non-verbal, nad Head and Neck: neck supple, no jvd, trachea midline, carotid midline, no cervical/head mass Eyes: orssana, nonicteric sclera, eom intact ENT: auditory acuity grossly intact, throat not congested, no nasal deformity Cardio: rrr, no m/r/g, no carotid bruit, nml s1, s2 Pulm: no accessory muscle use, equal nml breath sounds bilaterally, ctab Abd: s/nt/nd, nbs x 4 q, no palpable masses Derm: no rashes, no ulcers, no lesions Extr: no edema, no cyanosis, no calf tenderness, no lesions, no varicosities Neuro: Right sided facial droop, right sided muscle strength 0, right sided sensation only to pain; left sided muscle strength 5/5, intact sensation. Pt dysarthric. Alert, unable to assess orientation Assessment and Plan (1) CVA (cerebral vascular accident) Status: Acute - Assessment and Plan (Free Text) Assessment: Ms. Partida is a 61 year old female with past medical history of HTN status post stroke involving MCA infarct Plan: 1. CVA ischemic stroke in L MCA territory with no mass effect or hemorrhage seen. -Social work and case management state patient is not candidate for janine care. Pt needs subacute rehab following discharge. -ASA 81 mg, Plavix 75 mg daily, Atorvastatin 40 daily -Continue modified liquids/dysphagia diet. -Continue neurochecks q4h -Seizure precautions, fall precautions -Aspiration precautions -Physical therapy -D/C Tele -Change position q2 2. Positive hepatitis C -Await HCV viral RNA qual 3. PMHx HTN -No longer permissive HTN - Give lopressor PRN per dose in JUN 4. Hyperglycemia: stable -Continue Humalog sliding scale -Continue to monitor CMP -Metformin 500 bid 5. Leukopenia - resolved 6. Prophylaxis -DVT: Lovenox 40 -GI: pantoprazole 40mg Dispo: Discussed with family importance of continuing care for her disease process and gave information regarding appropriate measures to continue care. <Leno Casiano - Last Filed: 11/09/16 07:32> Objective - Vital Signs/Intake and Output Vital Signs (last 24 hours): Temp Pulse Resp BP Pulse Ox 98 F 98 H 18 161/75 H 98 11/08/16 16:00 11/08/16 16:00 11/08/16 16:00 11/08/16 16:00 11/08/16 16:00 - Labs Labs: 11/06/16 08:17 11/06/16 08:17 PT 10.9 Seconds (9.9-11.8) 10/30/16 08:36 INR 1.01 (0.93-1.08) 10/30/16 08:36 APTT 23.0 Seconds (23.7-30.8) L 10/30/16 08:36 Attending/Attestation - Attestation I have personally seen and examined this patient.: Yes I have fully participated in the care of the patient.: Yes I have reviewed all pertinent clinical information, including history, physical exam and plan: Yes Notes (Text): 11/09/16 07:30 attending note; Patient seen and examined with resident. Patient's daughter and son by the bedside. Patient is a 61-year-old [place] female with PMH of CAD and HTN , hyperlipidemia, history of B-cell lymphoma diffuse, cardiac cath with possible PCI, hepatitis C is admitted with right-sided hemiplegia with ischemic stroke in L MCA territory. currently patient is more awake, follow command most of the time, still has dense right sided hemeplegia mental status is slowly improving. on Puree diet. aspiration precautions in place. Continue Physical/OT and speech therapy. long term care social worker evaluation appreciated. Information about outpatient physical therapy given. Medication prescription given. Patient is currently visiting from [place] and planning to go back in December.
[2016-11-08] MEDS: Insulin Reg-LOW-Coverage SC SCH ×3 (08:10→16:21)
[2016-11-08] MEDS: Enoxaparin 40 mg Syringe SC SCH (09:17)
--- NOTE | 2016-11-08 13:04 | CP.PCM.DIS ---
<Seth Collinsophe - Last Filed: 11/08/16 13:03> Provider - Provider Date of Admission: 10/30/16 09:05 Attending physician: Leno Casiano MD Primary care physician: NO PRIMARY CARE PROVIDER Time Spent in preparation of Discharge (in minutes): 45 Diagnosis - Discharge Diagnosis (1) CVA (cerebral vascular accident) Status: Acute Hospital Course - Lab Results Lab Results: Micro Results 11/02/16 11:57 Blood Blood Culture - Final NO GROWTH AFTER 5 DAYS 11/02/16 11:57 Blood Gram Stain - Final TEST NOT PERFORMED 10/30/16 15:30 Nose MRSA Culture (Admit) - Final MRSA NOT DETECTED Most Recent Lab Values WBC 4.6 10^3/ul (4.5-11.0) 11/06/16 08:17 RBC 5.05 10^6/uL (3.5-6.1) 11/06/16 08:17 Hgb 14.4 gm/dL (12.0-16.0) 11/06/16 08:17 Hct 41.6 % (36.0-48.0) 11/06/16 08:17 MCV 82.4 fL (80.0-105.0) 11/06/16 08:17 MCH 28.5 pg (25.0-35.0) 11/06/16 08:17 MCHC 34.6 g/dl (31.0-37.0) 11/06/16 08:17 RDW 12.1 % (11.5-14.5) 11/06/16 08:17 Plt Count 231 10^3/uL (120.0-450.0) 11/06/16 08:17 MPV 9.5 fl (7.0-11.0) 11/06/16 08:17 Gran % 43.5 % (50.0-68.0) L 11/06/16 08:17 Lymph % (Auto) 41.9 % (22.0-35.0) H 11/06/16 08:17 [place] % (Auto) 12.9 % (1.0-6.0) H 11/06/16 08:17 Eos % (Auto) 1.5 % (1.5-5.0) 11/06/16 08:17 Baso % (Auto) 0.2 % (0.0-3.0) 11/06/16 08:17 Gran # 1.99 (1.4-6.5) 11/06/16 08:17 Lymph # 1.9 (1.2-3.4) 11/06/16 08:17 [place] # 0.6 (0.1-0.6) 11/06/16 08:17 Eos # 0.1 (0.0-0.7) 11/06/16 08:17 Baso # 0.01 K/mm3 (0.0-2.0) 11/06/16 08:17 Neutrophils % (Manual) 29 % (50.0-70.0) L 10/30/16 08:36 Band Neutrophils % 2 % (0-2) 10/30/16 08:36 Lymphocytes % (Manual) 56 % (22.0-35.0) H 10/30/16 08:36 Monocytes % (Manual) 8 % (1.0-6.0) H 10/30/16 08:36 Eosinophils % (Manual) 5 % (0.0-3.0) H 10/30/16 08:36 Platelet Evaluation Normal (NORMAL) 10/30/16 08:36 PT 10.9 Seconds (9.9-11.8) 10/30/16 08:36 INR 1.01 (0.93-1.08) 10/30/16 08:36 APTT 23.0 Seconds (23.7-30.8) L 10/30/16 08:36 Sodium 136 mmol/L (132-148) 11/06/16 08:17 Potassium 4.0 mmol/L (3.6-5.0) 11/06/16 08:17 Chloride 99 mmol/L (95-110) 11/06/16 08:17 Carbon Dioxide 27 mmol/L (21-33) 11/06/16 08:17 Anion Gap 14 (10-20) 11/06/16 08:17 BUN 23 mg/dL (7-21) H 11/06/16 08:17 Creatinine 0.6 mg/dL (0.5-1.4) 11/06/16 08:17 Est GFR ( Amer) > 60 11/06/16 08:17 Est GFR (Non-Af Amer) > 60 11/06/16 08:17 POC Glucose (mg/dL) 168 mg/dL (65-110) H 11/08/16 11:39 Random Glucose 238 mg/dL (70-110) H 11/06/16 08:17 Hemoglobin A1c 8.8 % (4.2-6.5) H 10/30/16 08:36 Calcium 9.5 mg/dL (8.4-10.5) 11/06/16 08:17 Total Bilirubin 1.0 mg/dL (0.2-1.3) 11/06/16 08:17 AST 46 U/L (15-39) H 11/06/16 08:17 ALT 39 U/L (7-56) 11/06/16 08:17 Alkaline Phosphatase 77 U/L (38-133) 11/06/16 08:17 Troponin I < 0.01 ng/mL 10/30/16 08:36 Total Protein 6.9 g/dL (5.8-8.3) 11/06/16 08:17 Albumin 3.8 g/dL (3.0-4.8) 11/06/16 08:17 Globulin 3.1 gm/dL 11/06/16 08:17 Albumin/Globulin Ratio 1.2 (1.1-1.8) 11/06/16 08:17 Triglycerides 161 mg/dL (35-160) H 10/30/16 08:36 Cholesterol 191 mg/dL (130-200) 10/30/16 08:36 LDL Cholesterol Direct 114 mg/dL (0-129) 10/30/16 08:36 HDL Cholesterol 42 mg/dL (29-60) 10/30/16 08:36 Homocysteine 13.9 umol/L ( <10.4) H 11/01/16 09:52 Urine Color Yellow (YELLOW) 10/30/16 18:00 Urine Appearance Cloudy (CLEAR) 10/30/16 18:00 Urine pH 6.5 (4.7-8.0) 10/30/16 18:00 Ur Specific [place] <= 1.005 (1.005-1.035) 10/30/16 18:00 Urine Protein Negative mg/dL (<30 mg/dL) 10/30/16 18:00 Urine Glucose (UA) 250 mg/dL (NEGATIVE) H 10/30/16 18:00 Urine Ketones 15 mg/dL (NEGATIVE) H 10/30/16 18:00 Urine Blood Small (NEGATIVE) H 10/30/16 18:00 Urine Nitrate Negative (NEGATIVE) 10/30/16 18:00 Urine Bilirubin Negative (NEGATIVE) 10/30/16 18:00 Urine Urobilinogen 0.2 E.U./dL (<1 E.U./dL) 10/30/16 18:00 Ur Leukocyte Esterase Negative Rei/uL (NEGATIVE) 10/30/16 18:00 Urine RBC 2 - 5 /hpf (0-2) 10/30/16 18:00 Urine WBC 0 - 2 /hpf (0-6) 10/30/16 18:00 Ur Epithelial Cells 0 - 2 /hpf (0-5) 10/30/16 18:00 Urine Bacteria Mod (NEG) 10/30/16 18:00 Hepatitis A IgM Ab Negative (NEGATIVE) 10/31/16 06:10 Hep Bs Antigen Negative (NEGATIVE) 10/31/16 06:10 Hep B Core IgM Ab Negative (NEGATIVE) 10/31/16 06:10 Hepatitis C Antibody Reactive (NEGATIVE) H 10/31/16 06:10 HCV RNA Qual (TMA) Detected H 11/01/16 10:00 Blood Type B POSITIVE 10/30/16 08:57 Blood Type Confirm B POSITIVE 10/30/16 09:21 Antibody Screen Negative 10/30/16 08:57 BBK History Checked No verified bt 10/30/16 08:57 Discharge Exam - Head Exam Head Exam: ATRAUMATIC, NORMAL INSPECTION Discharge Plan - Discharge Medications Prescriptions: Aspirin [Aspirin Chewable] 81 mg PO DAILY #30 Atorvastatin [Lipitor] 40 mg PO DIN #30 tab Clopidogrel [Plavix] 75 mg PO DAILY #30 tab metFORMIN [glucOPHAGE] 500 mg PO BRKDIN #60 tab - Follow Up Plan Condition: FAIR Disposition: HOME/ ROUTINE Instructions: Ischemic Stroke (DC), Left Hemispheric Stroke (DC), Self Care Measures After a Stroke (DC), Stroke (DC) Additional Instructions: Please follow up with a primary care provider for establishing care after your stroke. You are being discharged on new medications for future stroke prevention , please take as directed. Continue home rehab exercises as instructed at bedside. Please refer to resource to find a rehabilitation facility. If you have a recurrence of symptoms or new symptoms, please return to hospital. Referrals: Rodrigo Castellano MD [Staff Provider] - PCP,NO [Primary Care Provider] - <Leno Casiano - Last Filed: 11/09/16 07:35> Provider - Provider Date of Admission: 10/30/16 09:05 Attending physician: Leno Casiano MD Primary care physician: [facility]IMARY CARE PROVIDER Hospital Course - Lab Results Lab Results: Micro Results 11/02/16 11:57 Blood Blood Culture - Final NO GROWTH AFTER 5 DAYS 11/02/16 11:57 Blood Gram Stain - Final TEST NOT PERFORMED 10/30/16 15:30 Nose MRSA Culture (Admit) - Final MRSA NOT DETECTED Most Recent Lab Values WBC 4.6 10^3/ul (4.5-11.0) 11/06/16 08:17 RBC 5.05 10^6/uL (3.5-6.1) 11/06/16 08:17 Hgb 14.4 gm/dL (12.0-16.0) 11/06/16 08:17 Hct 41.6 % (36.0-48.0) 11/06/16 08:17 MCV 82.4 fL (80.0-105.0) 11/06/16 08:17 MCH 28.5 pg (25.0-35.0) 11/06/16 08:17 MCHC 34.6 g/dl (31.0-37.0) 11/06/16 08:17 RDW 12.1 % (11.5-14.5) 11/06/16 08:17 Plt Count 231 10^3/uL (120.0-450.0) 11/06/16 08:17 MPV 9.5 fl (7.0-11.0) 11/06/16 08:17 Gran % 43.5 % (50.0-68.0) L 11/06/16 08:17 Lymph % (Auto) 41.9 % (22.0-35.0) H 11/06/16 08:17 [place] % (Auto) 12.9 % (1.0-6.0) H 11/06/16 08:17 Eos % (Auto) 1.5 % (1.5-5.0) 11/06/16 08:17 Baso % (Auto) 0.2 % (0.0-3.0) 11/06/16 08:17 Gran # 1.99 (1.4-6.5) 11/06/16 08:17 Lymph # 1.9 (1.2-3.4) 11/06/16 08:17 [place] # 0.6 (0.1-0.6) 11/06/16 08:17 Eos # 0.1 (0.0-0.7) 11/06/16 08:17 Baso # 0.01 K/mm3 (0.0-2.0) 11/06/16 08:17 Neutrophils % (Manual) 29 % (50.0-70.0) L 10/30/16 08:36 Band Neutrophils % 2 % (0-2) 10/30/16 08:36 Lymphocytes % (Manual) 56 % (22.0-35.0) H 10/30/16 08:36 Monocytes % (Manual) 8 % (1.0-6.0) H 10/30/16 08:36 Eosinophils % (Manual) 5 % (0.0-3.0) H 10/30/16 08:36 Platelet Evaluation Normal (NORMAL) 10/30/16 08:36 PT 10.9 Seconds (9.9-11.8) 10/30/16 08:36 INR 1.01 (0.93-1.08) 10/30/16 08:36 APTT 23.0 Seconds (23.7-30.8) L 10/30/16 08:36 Sodium 136 mmol/L (132-148) 11/06/16 08:17 Potassium 4.0 mmol/L (3.6-5.0) 11/06/16 08:17 Chloride 99 mmol/L (95-110) 11/06/16 08:17 Carbon Dioxide 27 mmol/L (21-33) 11/06/16 08:17 Anion Gap 14 (10-20) 11/06/16 08:17 BUN 23 mg/dL (7-21) H 11/06/16 08:17 Creatinine 0.6 mg/dL (0.5-1.4) 11/06/16 08:17 Est GFR ( Amer) > 60 11/06/16 08:17 Est GFR (Non-Af Amer) > 60 11/06/16 08:17 POC Glucose (mg/dL) 178 mg/dL (65-110) H 11/08/16 15:57 Random Glucose 238 mg/dL (70-110) H 11/06/16 08:17 Hemoglobin A1c 8.8 % (4.2-6.5) H 10/30/16 08:36 Calcium 9.5 mg/dL (8.4-10.5) 11/06/16 08:17 Total Bilirubin 1.0 mg/dL (0.2-1.3) 11/06/16 08:17 AST 46 U/L (15-39) H 11/06/16 08:17 ALT 39 U/L (7-56) 11/06/16 08:17 Alkaline Phosphatase 77 U/L (38-133) 11/06/16 08:17 Troponin I < 0.01 ng/mL 10/30/16 08:36 Total Protein 6.9 g/dL (5.8-8.3) 11/06/16 08:17 Albumin 3.8 g/dL (3.0-4.8) 11/06/16 08:17 Globulin 3.1 gm/dL 11/06/16 08:17 Albumin/Globulin Ratio 1.2 (1.1-1.8) 11/06/16 08:17 Triglycerides 161 mg/dL (35-160) H 10/30/16 08:36 Cholesterol 191 mg/dL (130-200) 10/30/16 08:36 LDL Cholesterol Direct 114 mg/dL (0-129) 10/30/16 08:36 HDL Cholesterol 42 mg/dL (29-60) 10/30/16 08:36 Homocysteine 13.9 umol/L ( <10.4) H 11/01/16 09:52 Urine Color Yellow (YELLOW) 10/30/16 18:00 Urine Appearance Cloudy (CLEAR) 10/30/16 18:00 Urine pH 6.5 (4.7-8.0) 10/30/16 18:00 Ur Specific [place] <= 1.005 (1.005-1.035) 10/30/16 18:00 Urine Protein Negative mg/dL (<30 mg/dL) 10/30/16 18:00 Urine Glucose (UA) 250 mg/dL (NEGATIVE) H 10/30/16 18:00 Urine Ketones 15 mg/dL (NEGATIVE) H 10/30/16 18:00 Urine Blood Small (NEGATIVE) H 10/30/16 18:00 Urine Nitrate Negative (NEGATIVE) 10/30/16 18:00 Urine Bilirubin Negative (NEGATIVE) 10/30/16 18:00 Urine Urobilinogen 0.2 E.U./dL (<1 E.U./dL) 10/30/16 18:00 Ur Leukocyte Esterase Negative Rei/uL (NEGATIVE) 10/30/16 18:00 Urine RBC 2 - 5 /hpf (0-2) 10/30/16 18:00 Urine WBC 0 - 2 /hpf (0-6) 10/30/16 18:00 Ur Epithelial Cells 0 - 2 /hpf (0-5) 10/30/16 18:00 Urine Bacteria Mod (NEG) 10/30/16 18:00 Hepatitis A IgM Ab Negative (NEGATIVE) 10/31/16 06:10 Hep Bs Antigen Negative (NEGATIVE) 10/31/16 06:10 Hep B Core IgM Ab Negative (NEGATIVE) 10/31/16 06:10 Hepatitis C Antibody Reactive (NEGATIVE) H 10/31/16 06:10 HCV RNA Qual (TMA) Detected H 11/01/16 10:00 Blood Type B POSITIVE 10/30/16 08:57 Blood Type Confirm B POSITIVE 10/30/16 09:21 Antibody Screen Negative 10/30/16 08:57 BBK History Checked No verified bt 10/30/16 08:57 Attending/Attestation - Attestation I have personally seen and examined this patient.: Yes I have fully participated in the care of the patient.: Yes I have reviewed all pertinent clinical information, including history, physical exam and plan: Yes Notes (Text): 11/09/16 07:33 attending note; Patient seen and examined with resident. Patient's daughter and son by the bedside. Patient is a 61-year-old [place] female with PMH of CAD and HTN , hyperlipidemia, history of B-cell lymphoma diffuse, cardiac cath with possible PCI, hepatitis C is admitted with right-sided hemiplegia with ischemic stroke in L MCA territory. currently patient is more awake, follow command most of the time, still has dense right sided hemeplegia mental status is slowly improving. on Puree diet. aspiration precautions in place. Continue Physical/OT and speech therapy. geriatric social worker evaluation appreciated. Information about outpatient physical therapy given. Medication prescription given. Patient is currently visiting from [place] and planning to go back in December. Patient will be discharged home today. SEE progress note on the same day for more details. Diagnosis; Acute ischemic stroke Right hemiplegia Hypertension Diabetes Hepatitis C
[2016-11-08 17:29] VITALS: BP 161/75; PULSE 98; TEMP 98; O2SAT 98
== END 2016-11-08 19:06 | disposition home or self-care (01) | DRG 65 ==
LOC: ED 08:13 → ERH 09:05 → CCU 15:29 → 2RNO 11-01 17:08 → 3RSO 11-03 17:00 → 2RNO 11-03 17:55 → 3RSO 11-03 19:24
PROVIDERS: ADMIT Internal Medicine; ATTEND Internal Medicine
DX: I63.512 Cerebral infarction due to unspecified occlusion or stenosis of left middle cerebral artery (principal); G81.01 Flaccid hemiplegia affecting right dominant side; C83.30 Diffuse large B-cell lymphoma, unspecified site; R41.4 Neurologic neglect syndrome; E11.65 Type 2 diabetes mellitus with hyperglycemia; I10 Essential (primary) hypertension; R29.720 NIHSS score 20; R47.01 Aphasia; R29.810 Facial weakness; R47.1 Dysarthria and anarthria; R13.19 Other dysphagia; B19.20 Unspecified viral hepatitis C without hepatic coma; I65.23 Occlusion and stenosis of bilateral carotid arteries; I25.10 Atherosclerotic heart disease of native coronary artery without angina pectoris; E78.5 Hyperlipidemia, unspecified; R50.9 Fever, unspecified; D72.819 Decreased white blood cell count, unspecified; Z79.84 Long term (current) use of oral hypoglycemic drugs; Z95.5 Presence of coronary angioplasty implant and graft